=== PATIENT | male | born 1960 | race Caucasian/White ===

== ENCOUNTER → 2017-08-06 08:10 | Outpatient (CLI) | payer OTHER, SELFPAY ==
--- NOTE | 2017-08-06 08:20 | CT_ITS ---
CT abdomen pelvis wo con COMPARISON: CT scan abdomen pelvis without contrast 09/05/2014 HISTORY: Gross painless hematuria TECHNIQUE: Multiaxial scans obtained from hemidiaphragms pelvic floor and were performed without IV or oral contrast. Sagittal and coronal reformats were evaluated as well. FINDINGS: The lower lung rhoades are clear, there is a tiny calcified granuloma left posterior gutter. The liver is normal size again showing diffuse fatty infiltration with no focal lesions. Stomach spleen and pancreas appear normal. There has been a previous cholecystectomy. The adrenal glands are normal. The kidneys are normal in size and there are no calculi and is no obstructive uropathy. Small bowel appears normal. The appendix is normal in caliber and retrocecal in location. There is moderate scattered stool throughout the colon. There is minimal scattered diverticuli of the lower descending and sigmoid colon with is no evidence of diverticulitis. The urinary bladder is partially filled with urine and shows no filling defects or definite wall abnormality. The prostate is normal in size. IMPRESSION: 1. No evidence of renal or ureteral calculi and is no obstructive uropathy of either kidney. 2. Grossly normal-appearing partially filled urinary bladder with normal sized prostate 3. Minimal diverticulosis lower descending and sigmoid colon without diverticulitis 4. Stable mild diffuse fatty liver
== END ==
PROVIDERS: Family Provider Internal Medicine; PCP Internal Medicine; Visit Provider Internal Medicine
DX: R31.0 Gross hematuria (principal)
CPT/HCPCS: 74176

== ENCOUNTER → 2019-03-27 09:11 | Outpatient (CLI) | payer OTHER, SELFPAY ==
[2019-03-27 09:34] LABS: Basophils # 0.1 K/mm3 (0-0.2); Basophils % 1.1 % (0.1-2.0); Eosinophils # 0.2 K/mm3 (0.0-0.4); Eosinophils % 3.4 % (0.1-12.0); Hematocrit 30.1 % (42.0-52.0); Hemoglobin 8.3 g/dL (14.1-18.0); Lymphocytes # 1.9 K/mm3 (0.7-4.5); Lymphocytes % 33.9 % (10-50); Mean Corpuscular HGB Conc 27.4 g/dL (31.8-35.4); Mean Corpuscular Hemoglobin 18.6 pg (27.0-31.2); Mean Corpuscular Volume 67.6 fl (80-94); Mean Platelet Volume 9.2 fl (7.4-10.4); Monocytes # 0.3 K/mm3 (0.1-1.0); Monocytes % 5.7 % (1.7-9.3); Neutrophils # 3.2 K/mm3 (1.8-7.8); Neutrophils % 55.9 % (37.0-80.0); Platelet Count 302 K/mm3 (142-424); Red Blood Count 4.46 M/mm3 (4.60-6.20); Red Cell Distribution Width 15.7 % (11.5-17.5); White Blood Count 5.7 K/mm3 (4.8-10.8)
[2019-03-27 11:04] LABS: Alanine Aminotransferase 49 U/L (12-78); Albumin Level 3.8 gm/dL (3.4-5.0); Albumin/Globulin Ratio 1.1 (1.1-1.8); Alkaline Phosphatase 77 U/L (46-116); Anion Gap 15.7 mEq/L (5-15); Aspartate Amino Transferase 42 U/L (15-37); Bilirubin,Total 0.2 mg/dL (0.2-1.0); Blood Urea Nitrogen 23 mg/dL (7-18); Calcium 9.5 mg/dL (8.5-10.1); Carbon Dioxide 26 mmol/L (21.0-32.0); Chloride 104 mmol/L (98-107); Creatinine,Serum 1.39 mg/dL (0.70-1.30); Estimated Glomerular Filt Rate 52 ml/min (>60); GFR (African American) 63 ML/MIN (>60); Globulin 3.5 gm/dl (1.3-3.2); Glucose 164 mg/dL (74-106); Potassium 4.7 mmoL/L (3.5-5.1); Sodium 141 mmol/L (136-145); Thyroid Stimulating Hormone 0.98 uIU/ml (0.358-3.740); Total Protein,Serum 7.3 gm/dL (6.4-8.2)
[2019-03-28 09:30] LABS: Folate >20.0 ng/mL (>3.0); Vitamin B12 483 pg/mL (232-1245)
== END ==
PROVIDERS: Visit Provider Specialist
DX: D50.9 Iron deficiency anemia, unspecified (principal); E11.65 Type 2 diabetes mellitus with hyperglycemia; E66.9 Obesity, unspecified; R25.1 Tremor, unspecified
CPT/HCPCS: 36415; 80053; 82607; 82746; 84443; 85025

== ENCOUNTER → 2020-07-24 10:28 | Outpatient (CLI) | payer OTHER, SELFPAY ==
[2020-07-24 10:31] LABS: Adenovirus F 40/41, stool Not Detected (NotDetected); Astrovirus Not Detected (NotDetected); Campylobacter Not Detected (NotDetected); Clostridium Difficile A/B, PCR Not Detected (NotDetected); Cryptosporidium Not Detected (NotDetected); Cyclospora Cayetanesis Not Detected (NotDetected); Entamoeba histolytica Not Detected (NotDetected); Enteroaggregative E coli Not Detected (NotDetected); Enteropathogenic E coli Not Detected (NotDetected); Enterotoxigenic E coli Not Detected (NotDetected); Giardia lamblia Not Detected (NotDetected); Norovirus Not Detected (NotDetected); Plesimonas Shigalloides, PCR Not Detected (NotDetected); Rotavirus A Not Detected (NotDetected); Salmonella, PCR Not Detected (NotDetected); Sapovirus Not Detected (NotDetected); Shiga-like toxin E coli Not Detected (NotDetected); Shigella Enterovasive E coli Not Detected (NotDetected); Vibrio Cholerae Not Detected (NotDetected); Vibrio, PCR Not Detected (NotDetected); Yersinia Entercolitica, PCR Not Detected (NotDetected)
== END ==
PROVIDERS: Visit Provider Internal Medicine
DX: R19.7 Diarrhea, unspecified (principal)
CPT/HCPCS: 87507

== ENCOUNTER → 2021-07-30 12:26 | Outpatient (CLI) | payer OTHER, SELFPAY ==
[2021-07-30 15:07] LABS: Basophils # 0.1 K/mm3 (0-0.2); Basophils % 1.7 % (0.1-2.0); Eosinophils # 0.3 K/mm3 (0.0-0.4); Eosinophils % 3.7 % (0.1-12.0); Hemoglobin 15.4 g/dL (14.1-18.0); Lymphocytes % 38.1 % (10-50); Mean Corpuscular HGB Conc 32.7 g/dL (31.8-35.4); Mean Corpuscular Hemoglobin 27.2 pg (27.0-31.2); Mean Corpuscular Volume 83.1 fl (80-94); Mean Platelet Volume 9.8 fl (7.4-10.4); Monocytes # 0.4 K/mm3 (0.1-1.0); Monocytes % 5.1 % (1.7-9.3); Neutrophils # 4.1 K/mm3 (1.8-7.8); Neutrophils % 51.5 % (37.0-80.0); Platelet Count 349 K/mm3 (142-424); Red Blood Count 5.66 M/mm3 (4.60-6.20); Red Cell Distribution Width 15.2 % (11.5-17.5); White Blood Count 7.9 K/mm3 (4.8-10.8)
[2021-07-30 16:26] LABS: Direct LDL Cholesterol 91.39 mg/dL (100-129)
[2021-07-30 16:28] LABS: Triglycerides 814 mg/dl (30-150)
[2021-07-30 17:16] LABS: Chloride 100 mmol/L (98-107)
[2021-07-30 17:17] LABS: Potassium 4.5 mmoL/L (3.5-5.1); Sodium 135 mmol/L (136-145)
[2021-07-30 17:19] LABS: Alanine Aminotransferase 58 U/L (12-78); Albumin Level 4.8 g/dl (3.5-5.0); Albumin/Globulin Ratio 1.8 (1.1-1.8); Alkaline Phosphatase 100 U/L (38-126); Anion Gap 16.5 mEq/L (5-15); Aspartate Amino Transferase 53 U/L (17-59); Bilirubin,Total 0.4 mg/dl (0.2-1.3); Blood Urea Nitrogen 27 mg/dl (9-20); Carbon Dioxide 23 mmol/L (22.0-30.0); Cholesterol 270 mg/dl (140-200); Estimated Glomerular Filt Rate 62 ml/min (>60); GFR (African American) 74 ML/MIN (>60); Globulin 2.7 g/dL (1.3-3.2); Glucose 164 mg/dl (74-100); Total Protein,Serum 7.5 g/dl (6.3-8.2)
[2021-07-30 17:20] LABS: Chol/HDL Ratio 6.8 (1-3.5); HDL Cholesterol 40 mg/dl (40-60)
[2021-07-30 17:26] LABS: Hemoglobin A1C 8.4 % (4.0-6.0)
[2021-07-30 17:50] LABS: Uric Acid 5.4 mg/dl (3.5-8.5)
== END ==
PROVIDERS: Visit Provider Internal Medicine
DX: G43.909 Migraine, unspecified, not intractable, without status migrainosus (principal); J20.9 Acute bronchitis, unspecified; F51.01 Primary insomnia; J45.901 Unspecified asthma with (acute) exacerbation
CPT/HCPCS: 80053; 80061; 83036; 84550; 85025

== ENCOUNTER → 2022-02-02 16:40 | Outpatient (CLI) | payer OTHER, SELFPAY ==
[2022-02-02 18:19] LABS: Basophils # 0.1 K/mm3 (0-0.2); Basophils % 1.8 % (0.1-2.0); Eosinophils # 0.3 K/mm3 (0.0-0.4); Eosinophils % 3.1 % (0.1-12.0); Hematocrit 49.1 % (42.0-52.0); Hemoglobin 15.8 g/dL (14.1-18.0); Lymphocytes # 2.3 K/mm3 (0.7-4.5); Lymphocytes % 28.9 % (10-50); Mean Corpuscular HGB Conc 32.2 g/dL (31.8-35.4); Mean Corpuscular Hemoglobin 28.1 pg (27.0-31.2); Mean Corpuscular Volume 87.3 fl (80-94); Monocytes # 0.5 K/mm3 (0.1-1.0); Monocytes % 6.2 % (1.7-9.3); Neutrophils # 4.8 K/mm3 (1.8-7.8); Neutrophils % 59.9 % (37.0-80.0); Platelet Count 332 K/mm3 (142-424); Red Blood Count 5.63 M/mm3 (4.60-6.20); White Blood Count 7.9 K/mm3 (4.8-10.8)
[2022-02-02 18:32] LABS: Microalbumin/Creatinine Ratio 186.4
[2022-02-02 18:42] LABS: Creatinine,Urine Random 50 mg/dL (Not Estab.)
[2022-02-02 20:38] LABS: Anion Gap 19.6 mEq/L (5-15); Carbon Dioxide 24 mmol/L (22.0-30.0); Chloride 98 mmol/L (98-107); Potassium 4.6 mmoL/L (3.5-5.1); Sodium 137 mmol/L (136-145)
[2022-02-02 20:39] LABS: Alanine Aminotransferase 57 U/L (12-78); Albumin Level 4.4 g/dl (3.5-5.0); Albumin/Globulin Ratio 1.4 (1.1-1.8); Alkaline Phosphatase 128 U/L (38-126); Aspartate Amino Transferase 58 U/L (17-59); Bilirubin,Total 0.2 mg/dl (0.2-1.3); Blood Urea Nitrogen 25 mg/dl (9-20); Calcium 9.5 mg/dl (8.4-10.2); Chol/HDL Ratio 8.6 (1-3.5); Cholesterol 268 mg/dl (140-200); Estimated Glomerular Filt Rate 56 ml/min (>60); GFR (African American) 68 ML/MIN (>60); Globulin 3.1 g/dL (1.3-3.2); Glucose 167 mg/dl (74-100); HDL Cholesterol 31 mg/dl (40-60); Hemoglobin A1C 7.4 % (4.0-6.0); Total Protein,Serum 7.5 g/dl (6.3-8.2); Uric Acid 6.2 mg/dl (3.5-8.5)
[2022-02-02 20:50] LABS: Direct LDL Cholesterol 57.56 mg/dL (100-129)
[2022-02-02 20:57] LABS: Triglycerides 1392 mg/dl (30-150)
== END ==
PROVIDERS: PCP Internal Medicine; Visit Provider Internal Medicine
DX: E11.42 Type 2 diabetes mellitus with diabetic polyneuropathy (principal); I10 Essential (primary) hypertension; E78.5 Hyperlipidemia, unspecified; K76.0 Fatty (change of) liver, not elsewhere classified; M10.9 Gout, unspecified; Z79.84 Long term (current) use of oral hypoglycemic drugs
CPT/HCPCS: 36415; 80053; 80061; 82043; 82570; 83036; 84550; 85025

== ENCOUNTER 2022-02-19 08:19 | Emergency (ER) | payer OTHER, SELFPAY ==
[2022-02-19 08:33] VITALS: BP 149/99; PULSE 81; RESP 18; TEMP 36.5; O2SAT 98; BMI 35.9
--- NOTE | 2022-02-19 08:49 | EXP.UTC ---
Discharge Plan Disposition Patient Disposition: Home, Self-Care Condition: Good Prescriptions Prescriptions: New cyclobenzaprine 10 mg Tablet 10 mg PO BID PRN (Reason: Muscle Spasm) Qty: 20 0RF methylprednisolone 4 mg Tablets,Dose Pack 4 mg PO DIRECTED Qty: 21 0RF No Action amlodipine 10 mg tablet 10 mg PO ONCE lansoprazole 30 mg capsule,delayed release(DR/EC) 30 mg PO ONCE lisinopril 40 mg tablet 80 mg PO ONCE allopurinol 300 mg tablet 300 mg PO ONCE fluticasone propionate 50 mcg/actuation spray,suspension 2 spray INTRANASAL ONCE glimepiride 4 mg tablet 4 mg PO BID fenofibrate micronized 134 mg capsule 134 mg PO ONCE tamsulosin 0.4 mg capsule,extended release 24hr 0.4 mg PO ONCE albuterol sulfate [ProAir HFA] 90 mcg/actuation HFA aerosol inhaler 2 puff INHALATION Q4-6H PRN (Reason: ASTHMA) hydrochlorothiazide 25 mg tablet 25 mg PO DAILY sitagliptin 100 MG tablet 100 mg PO DAILY ertugliflozin 5 MG tablet 5 mg PO DAILY Referrals Follow up/Referrals: Ankit Jefferson MD [Primary Care Provider] - See instructions Activity Restrictions/Add. Instructions Additional Instructions/Restrictions: Go home and rest. It would be best if you rested tomorrow too. No heavy lifting. No twisting. Take the oral medications as directed. The muscle relaxer (cyclobenzaprine--Flexeril) will make you drowsy, so don't drive or operate heavy machinery after taking it. Don't start the oral steroids (medrol dose pack) until tomorrow, since you had the shots in here today. Follow up with your regular doctor. GO TO THE ER FOR ANY WORSENING SYMPTOMS OR CONCERN, ESPECIALLY BOWEL OR BLADDER ISSUES, SADDLE AREA NUMBNESS, FEVER, ETC Clinical Impressions Clinical Impression: Acute radicular low back pain Instructions Patient Instructions: DI for Low Back Pain, Cyclobenzaprine, DI for Lumbar Radiculopathy [place]charge ED [place] [facility] [place] General Stated complaint: back pain down to Lt leg Mode of Arrival: Ambulatory Limitations: No Limitations Time Seen by Provider: 02/19/22 08:49 Description of Symptoms (Recalled from Triage Doc. by RN): BACK PAIN THAT RADIATES DOWN LEFT LEG HEENT Symptoms (Recalled from RN notes): No Resp Symptoms (Recalled from RN notes): No Skin Symptoms (Recalled from RN notes): No MS Symptoms (Recalled from RN notes): Yes Functional Status (Recalled from RN notes): NA History of Present Illness Provider Complaint: He states that for the past 2 days he has had low back pain that radiates down his left leg. Bending and twisting makes it worse. He denies any recent injury or falls. Related Data Home Medications Medication Instructions Recorded Confirmed albuterol sulfate 90 mcg/actuation 2 puff inhalation Q4-6H PRN ASTHMA 08/12/17 06/07/19 aerosol inhaler (ProAir HFA) allopurinol 300 mg tablet 300 mg PO ONCE GOUT 08/12/17 06/07/19 amlodipine 10 mg tablet 10 mg PO ONCE BP 08/12/17 06/07/19 fenofibrate micronized 134 mg 134 mg PO ONCE UNKNOWN 08/12/17 06/07/19 capsule fluticasone propionate 50 2 spray intranasal ONCE ALLERGIES 08/12/17 06/07/19 mcg/actuation nasal spray,suspension glimepiride 4 mg tablet 4 mg PO BID Diabetes 08/12/17 06/07/19 lansoprazole 30 mg capsule,delayed 30 mg PO ONCE STOMACH 08/12/17 06/07/19 release lisinopril 40 mg tablet 80 mg PO ONCE BP 08/12/17 06/12/19 tamsulosin 0.4 mg capsule 0.4 mg PO ONCE PROSTATE 08/12/17 06/07/19 hydrochlorothiazide 25 mg tablet 25 mg PO DAILY BP 03/27/19 06/07/19 ertugliflozin 5 mg tablet 5 mg PO DAILY Diabetes 06/07/19 06/07/19 sitagliptin 100 mg tablet 100 mg PO DAILY Diabetes 06/07/19 06/07/19 Previous Rx's Medication Instructions Recorded cyclobenzaprine 10 mg tablet 10 mg PO BID PRN Muscle Spasm #20 02/19/22 tabs methylprednisolone 4 mg tablets in 4 mg PO DIRECTED #21 tabs 02/19/22 a dose pack Allergies
[2022-02-19 09:14] VITALS: BP 149/99; PULSE 81; RESP 18; TEMP 36.5; O2SAT 98
== END 2022-02-19 09:17 | disposition home or self-care (01) ==
PROVIDERS: Emergency Provider Nurse Practitioner Family; PCP Internal Medicine
DX: M54.16 Radiculopathy, lumbar region (principal)
CPT/HCPCS: 96372; 99212; G0463

== ENCOUNTER → 2022-05-11 12:33 | Outpatient (CLI) | payer OTHER, SELFPAY ==
--- NOTE | 2022-05-11 12:43 | MR_ITS ---
FINAL REPORT CLINICAL HISTORY: lbp worse on left side. leg leg pain, numbness, and tingling. no injury or trauma, FINDINGS: Multiplanar MR imaging of the lumbar spine was performed without contrast. On the sagittal T2-weighted images, disc degeneration is seen at multiple levels. There is mild retrolisthesis of L4 on L5. There is no evidence of fracture. The conus has an unremarkable appearance. T12-L1: There is no significant canal stenosis or neural foraminal narrowing. L1-2: An annular bulge is present. There is no significant canal stenosis or neural foraminal narrowing. L2-3: There is an annular disc bulge with facet arthropathy and vertebral osteophytes. There is a right posterior lateral disc protrusion. There is no significant canal stenosis. There is mild bilateral neural foraminal narrowing. L3-4: An annular bulge is present. There is a right posterior lateral disc protrusion. There is no significant canal stenosis. There is moderate right neural foraminal narrowing. L4-5: An annular disc bulge with facet arthropathy is present. There is a left paracentral disc protrusion with an inferior extruded disc. There is left lateral recess stenosis with left L5 nerve root compromise. There is moderate right and severe left neural foraminal narrowing. L5-S1: An annular disc bulge with facet arthropathy is present. There is a right foraminal extruded disc causing right S1 nerve root compromise. There is bilateral neural foraminal narrowing. There is mild spurring of the sacroiliac joints. IMPRESSION: Multilevel degenerative disc disease as above. Disc protrusions at L2-3, L3-4, and L4-5 with an extruded disc at L5-S1. Reviewed, Interpreted and Dictated by Bennie Vaughn III, MD Transcribed by Tere Levy Authenticated and [facility]
== END ==
PROVIDERS: PCP Internal Medicine; Visit Provider Internal Medicine
DX: M54.42 Lumbago with sciatica, left side (principal)
CPT/HCPCS: 72148; 76376

== ENCOUNTER 2022-05-14 09:00 | Outpatient (RCR) | payer OTHER, SELFPAY | END 2022-05-14 09:05 | disposition home or self-care (01) | LOC: PT 09:00 | PROVIDERS: PCP Internal Medicine; Visit Provider Internal Medicine | DX: M54.42 Lumbago with sciatica, left side (principal) | CPT/HCPCS: 97010; 97012; 97014; 97110; 97140; 97163; 97164; G0283 ==

== ENCOUNTER → 2022-06-08 12:46 | Outpatient (POV) | payer OTHER, SELFPAY ==
--- NOTE | 2022-06-08 13:00 | EXP.PAIN.OV ---
HPI Data of Consult Patient: new to practice Consult date: 06/08/22 Requesting Physician: Concha Mark APRN Primary Care Provider: Ankit Jefferson MD Consult Narrative Reason for consult: Low back pain, left leg pain History of present illness: Mr. Real is a 62 year old male who presents today as a new patient. He is a referral from Dr. Jefferson's office. Today he rates his pain a 2 out of 10. Patient states that his pain started towards the end of last year unrelated to a trauma or injury. Patient states his pain was in his low back with radiating symptoms into his left leg. Patient describes this as a aching, throbbing sensation that was worse with increased activity. Patient did have a cortisone injection from his primary care provider that did provide some improvement. Patient also states that he did start physical therapy and was only able to attend 3 visits due to the worsening pain symptoms. Patient states he did stop PT in April and then had almost 100% resolution of his pain symptoms. Patient did want to go ahead and see us in order to become an established patient in case this pain does return in the future. Patient does use gabapentin 300 mg and ibuprofen however he states he has not had to take his gabapentin for the last couple of weeks. His Zach is [id number]. Its been reviewed and appropriate. CC: Concha Mark APRN [facility] Disclaimer: The information contained in this section may have been updated after the patient was seen, as this information can be updated by other users. Medical History Diabetes GERD (gastroesophageal reflux disease) Gout Hypertension Social History (Updated 06/08/22 @ 13:06 by Macey Song RN) Smoking Status: Former smoker pack-years: 15 second hand exposure: Yes alcohol intake: never substance use type: denies use current occupational status: retired Travel in the last 8 weeks: None household members: spouse housing: house caffeine: Yes Review of Systems Review of Systems Review of systems:: pertinent systems reviewed and negative unless documented below Review of systems (narrative): Review of Systems: General: No recent weight changes, no fever, no sleep disturbances Respiratory: No cough, no shortness of air, no recurring pulmonary infections Cardiovascular/peripheral vascular: No chest pain, no palpitations, no edema, no shortness of breath Gastrointestinal: No new onset incontinence, normal bowel movements reported Genitourinary: No new onset incontinence Musculoskeletal: Low back pain, left leg pain Psychiatric: [Normal mood/affect] Neurological: [Denies weakness in extremities], [denies balance issues] Meds Home Medications and Allergies Home Medications Medication Instructions Recorded Confirmed Type albuterol sulfate 90 mcg/actuation 2 puff inhalation Q4-6H PRN ASTHMA 08/12/17 06/08/22 History aerosol inhaler (ProAir HFA) allopurinol 300 mg tablet 300 mg PO ONCE GOUT 08/12/17 06/08/22 History amlodipine 10 mg tablet 10 mg PO ONCE BP 08/12/17 06/08/22 History fenofibrate micronized 134 mg 134 mg PO ONCE UNKNOWN 08/12/17 06/08/22 History capsule fluticasone propionate 50 2 spray intranasal ONCE ALLERGIES 08/12/17 06/08/22 History mcg/actuation nasal spray,suspension glimepiride 4 mg tablet 4 mg PO BID Diabetes 08/12/17 06/08/22 History lansoprazole 30 mg capsule,delayed 30 mg PO ONCE STOMACH 08/12/17 06/08/22 History release lisinopril 40 mg tablet 80 mg PO ONCE BP 08/12/17 06/08/22 History tamsulosin 0.4 mg capsule 0.4 mg PO ONCE PROSTATE 08/12/17 06/08/22 History hydrochlorothiazide 25 mg tablet 25 mg PO DAILY BP 03/27/19 06/08/22 History ertugliflozin 5 mg tablet 5 mg PO DAILY Diabetes 06/07/19 06/08/22 History sitagliptin phosphate 100 mg tablet 100 mg PO DAILY Diabetes 06/07/19 06/08/22 History cyclobenzaprine 10 mg tablet 10 mg PO BID PRN Muscle Spasm #20 02/19/
[2022-06-08 13:02] VITALS: BP 151/94; PULSE 90; RESP 18; O2SAT 98; BMI 35.9
== END ==
PROVIDERS: PCP Internal Medicine; Visit Provider Nurse Practitioner Family
DX: M51.16 Intervertebral disc disorders with radiculopathy, lumbar region (principal); M47.26 Other spondylosis with radiculopathy, lumbar region; M79.605 Pain in left leg
CPT/HCPCS: 99202; G0463

== ENCOUNTER → 2022-08-03 14:38 | Outpatient (CLI) | payer OTHER, SELFPAY ==
[2022-08-03 17:23] LABS: Hemoglobin A1C 7.6 % (4.0-6.0)
[2022-08-03 17:36] LABS: Alanine Aminotransferase 48 U/L (12-78); Albumin Level 4.6 g/dl (3.5-5.0); Albumin/Globulin Ratio 1.6 (1.1-1.8); Alkaline Phosphatase 103 U/L (38-126); Anion Gap 13.2 mEq/L (5-15); Aspartate Amino Transferase 43 U/L (17-59); Bilirubin,Total 0.5 mg/dl (0.2-1.3); Blood Urea Nitrogen 27 mg/dl (9-20); Calcium 9.2 mg/dl (8.4-10.2); Carbon Dioxide 26 mmol/L (22.0-30.0); Chloride 100 mmol/L (98-107); Chol/HDL Ratio 8.7 (1-3.5); Cholesterol 279 mg/dl (140-200); Estimated Glomerular Filt Rate 47 ml/min (>60); GFR (African American) 57 ML/MIN (>60); Globulin 2.8 g/dL (1.3-3.2); Glucose 167 mg/dl (74-100); HDL Cholesterol 32 mg/dl (40-60); Potassium 4.2 mmoL/L (3.5-5.1); Sodium 135 mmol/L (136-145); Total Protein,Serum 7.4 g/dl (6.3-8.2); Uric Acid 5.1 mg/dl (3.5-8.5)
[2022-08-03 17:47] LABS: Direct LDL Cholesterol 63.85 mg/dL (100-129)
[2022-08-03 17:50] LABS: Triglycerides 1410 mg/dl (30-150)
[2022-08-03 18:04] LABS: Prostate Specific Ag Screen 0.8 ng/ml (0.0-4.0)
== END ==
PROVIDERS: PCP Internal Medicine; Visit Provider Internal Medicine
DX: E11.42 Type 2 diabetes mellitus with diabetic polyneuropathy (principal); I10 Essential (primary) hypertension; E78.5 Hyperlipidemia, unspecified; M10.9 Gout, unspecified; Z12.5 Encounter for screening for malignant neoplasm of prostate; Z79.84 Long term (current) use of oral hypoglycemic drugs
CPT/HCPCS: 80053; 80061; 83036; 84550; G0103

== ENCOUNTER → 2022-12-14 15:02 | Outpatient (POV) | payer OTHER, SELFPAY ==
[2022-12-14 15:07] VITALS: BP 129/87; PULSE 85; RESP 20; BMI 34.4
--- NOTE | 2022-12-14 15:12 | EXP.PAIN.SOA ---
[facility] Pain Management SOAP Note Subjective:: Patient is a pleasant 62-year-old male who presents today as a follow-up. We are currently treating the patient for degenerative disc disease of lumbar spine with lumbar radiculopathy symptoms, low back pain, left leg pain. Today he rates his pain a 5 out of 10. Patient denies any new trauma or injury. Patient denies any change to location or type of pain he experiences. Patient states he has been having worsening pain in his low back along the left side that does radiate into his left hip and left groin. He does describe it as a tingling, burning sensation that is worse with increased activity. He states he cannot tolerate prolonged sitting, standing or walking due to the pain. He frequently has to adjust his positioning while sitting due to the pain along the left side. It is interfering with his ability to perform activities of daily living such as cooking and cleaning. Patient has tried [id number] medications such as Tylenol and ibuprofen along with heat and ice and topicals with minimal relief. Patient did go to physical therapy back in April however this worsened his pain symptoms and he did have to stop going. Patient is currently managed with [place] 5 mg and gabapentin 300 mg twice a day from his primary care doctor. He denies any side effects from this medication. His Zach is [id number]. Its been reviewed and appropriate. Review of Systems: General: No recent weight changes, no fever, no sleep disturbances Respiratory: No cough, no shortness of air, no recurring pulmonary infections Cardiovascular/peripheral vascular: No chest pain, no palpitations, no edema, no shortness of breath Gastrointestinal: No new onset incontinence, normal bowel movements reported Genitourinary: No new onset incontinence Musculoskeletal: Low back pain left-sided, left hip, left groin pain Psychiatric: [Normal mood/affect] Neurological: [Denies weakness in extremities], [denies balance issues] Objective:: Physical Exam: General: Alert and oriented x3, no acute distress, pleasant and cooperative Lungs: Respirations even and unlabored, symmetrical chest expansion Eyes: PERRL Musculoskeletal: Flexion and extension of lumbar [spine] somewhat guarded secondary to pain, [antalgic gait noted] point tenderness noted along left SI with positive left Kameron's, Justa's, Gaenslen's, compression and distraction exam Neurological: Speech clear, no gross sensory deficit Assessment:: Degenerative disc disease of lumbar spine with lumbar radiculopathy symptoms, low back pain, left leg pain, left sacroiliitis Plan:: Patient is experiencing worsening pain in his low back along the left side with limited range of motion and radiating symptoms into his left hip and left groin. Patient has tried and failed conservative therapy such as oral medications, heat and ice, topicals, physical therapy, at home stretching and exercise for longer than 6 weeks. I have discussed with the patient that he may benefit from a left SI injection related to his point tenderness noted along his left SI with a positive left Kameron's, Justa's, Gaenslen's, compression and distraction exam. Risk and benefits of this injection were explained to the patient and he would like to proceed forward with this plan of care. Patient will be scheduled for a left SI injection. Patient has been instructed to contact the clinic with any concerns before the next appointment. Dr. Meyers has reviewed this note and agrees with this plan of care. This note was dictated using voice recognition software and make contain errors or omissions. [facility] Disclaimer: The information contained in this section may have been updated after the patient was seen, as this information can be updated by other users. Medical History Diabetes GERD (gastroesophageal reflux disease) Gout Hypertension Social History (Updated 06/08/22 @ 13:06
== END ==
LOC: SC.PAIN 15:02
PROVIDERS: PCP Internal Medicine; Visit Provider Nurse Practitioner Family
DX: M51.16 Intervertebral disc disorders with radiculopathy, lumbar region (principal); M54.50 Low back pain, unspecified; M79.605 Pain in left leg; M46.1 Sacroiliitis, not elsewhere classified
CPT/HCPCS: 99212; G0463

== ENCOUNTER 2022-12-22 13:26 | Day surgery (SDC) | payer OTHER, SELFPAY ==
[2022-12-22 13:41] VITALS: BP 131/82; PULSE 82; RESP 18; O2SAT 98; BMI 35.9
[2022-12-22 14:13] LABS: POC Glucose,Bedside 196 (70-110)
[2022-12-22 14:16] VITALS: BP 136/83; PULSE 76; RESP 18; O2SAT 98
[2022-12-22 14:28] VITALS: PULSE 77; RESP 18; O2SAT 95
--- NOTE | 2022-12-22 14:29 | EXP.PAIN.PRO ---
Procedure Date: 12/22/22 Time: 14:20 Anesthesiologist:: Kevin Brown CRNA Complications:: None Pre-procedure Diagnosis:: Left sacroiliitis. Post-procedure Diagnosis:: Same. Indications for Procedure:: Very pleasant 62-year-old male who comes our clinic today for left sacroiliac joint injection. Patient has extreme point tenderness over the left sacroiliac joint. He complains of left posterior hip pain with ambulation, sitting. Rates his pain 8/10. Patient has difficulty transitioning from sitting to standing. Procedure Details:: Procedure: Left sacroiliac injection under fluoroscopy Informed consent was obtained and the risk and benefits of the procedure were explained to the patient.~ The patient was taken to the procedure room and noninvasive monitors were placed including noninvasive blood pressure cuff and pulse oximeter.~ The patient was placed prone on the procedure table.~ The~ left hip was cleansed using Betadine as a cleansing solution.~ C-arm fluorosocpy was used to view the left SI joint.~ The skin and subcutaneous tissues were anesthetized using Lidocaine 1.5% and a 25-gauge needle.~ After this, a 22-gauge spinal needle was inserted under fluoroscopic guidance into the inferior aspect of the left SI joint.~ Omnipaque dye was injected and a good spread was seen throughout the joint.~ After this, approximately 5 mL of bupivacaine 0.25% and Depo-Medrol 40 mg was incrementally injected into the sacroiliac joint.~ The patient tolerated the procedure well with no complications.~ The patient was observed in the Pain Clinic for a period of 30-45 minutes, then discharged home neurologically intact.~ Plan and Disposition:: Patient was discharged without incident.
== END 2022-12-22 14:16 | disposition home or self-care (01) ==
LOC: SC.PAINP 13:27
PROVIDERS: PCP Internal Medicine; Visit Provider Nurse Anesthetist, Certified Registered
DX: M46.1 Sacroiliitis, not elsewhere classified (principal); E11.9 Type 2 diabetes mellitus without complications
CPT/HCPCS: 27096; 82962; G0260; J1040

== ENCOUNTER → 2023-01-06 13:48 | Outpatient (POV) | payer OTHER, SELFPAY ==
[2023-01-06 15:49] VITALS: BP 147/96; PULSE 81; RESP 20; O2SAT 97; BMI 35.9
--- NOTE | 2023-01-06 16:27 | EXP.PAIN.SOA ---
[facility] Pain Management SOAP Note Subjective:: Patient presents today for follow-up of left SI injection on 12/22/2022. We are currently treating the patient for degenerative disc disease of lumbar spine with lumbar radiculopathy symptoms, low back pain, left leg pain, sacroiliitis. Today he rates his pain a 5 out of 10. Patient denies any new trauma or injury. He does state that he did not necessarily notice significant improvement with this injection however he has noticed that he is able to sit for longer periods of time with decreased pain symptoms. Patient states that he continues to have pain into his low back along the left side and down his left leg. He does describe this as an aching, throbbing sensation that is worse with increased activity. It does interfere with his ability perform activities of daily living such as cooking or cleaning. Patient has tried [id number]-[id number] medications along with heat and ice and topicals with no additional improvement. This has been going on since before April. Patient has also tried [place] 5 mg and gabapentin 300 mg 3 times a day from his primary care doctor with minimal improvement. His Zach is [id number]. Its been reviewed and appropriate. Review of Systems: General: No recent weight changes, no fever, no sleep disturbances Respiratory: No cough, no shortness of air, no recurring pulmonary infections Cardiovascular/peripheral vascular: No chest pain, no palpitations, no edema, no shortness of breath Gastrointestinal: No new onset incontinence, normal bowel movements reported Genitourinary: No new onset incontinence Musculoskeletal: Low back pain, left leg pain Psychiatric: [Normal mood/affect] Neurological: [Denies weakness in extremities], [denies balance issues] Objective:: Physical Exam: General: Alert and oriented x3, no acute distress, pleasant and cooperative Lungs: Respirations even and unlabored, symmetrical chest expansion Eyes: PERRL Musculoskeletal: Flexion and extension of lumbar [spine] somewhat guarded secondary to pain, [antalgic gait noted] positive left leg raise with decreased Achilles reflex and decreased sensation to light touch Neurological: Speech clear, no gross sensory deficit Assessment:: Degenerative disc disease of lumbar spine with lumbar radiculopathy symptoms, low back pain, left leg pain, sacroiliitis Plan:: Patient is experiencing significant pain in his low back with radiating symptoms into his left lower extremity. Patient did have a positive left leg raise with decreased reflexes and decreased sensation to light touch during today's exam. Patient does have significant findings consistent with possible nerve impingement. I have discussed with the patient that he may benefit from a left transforaminal epidural steroid injection. Risk and benefits were explained to the patient and he would like to proceed forward with this plan of care. Patient is not on any blood thinners. We will schedule him for a left transforaminal epidural steroid injection L4-L5 and L5-S1. Patient has been instructed to contact the clinic with any concerns before the next appointment. Dr. Meyers has reviewed this note and agrees with this plan of care. This note was dictated using voice recognition software and make contain errors or omissions. [facility] Disclaimer: The information contained in this section may have been updated after the patient was seen, as this information can be updated by other users. Medical History Diabetes GERD (gastroesophageal reflux disease) Gout Hypertension Family History (Updated 12/22/22 @ 13:42 by Destinee Madsen RN) Other No significant family history Social History Smoking Status: Former smoker pack-years: 15 second hand exposure: Yes alcohol intake: never substance use type: denies use current occupational status: other [employer]
== END ==
PROVIDERS: PCP Internal Medicine; Visit Provider Nurse Practitioner Family
DX: M51.16 Intervertebral disc disorders with radiculopathy, lumbar region (principal); M79.605 Pain in left leg; M46.1 Sacroiliitis, not elsewhere classified
CPT/HCPCS: 99212; G0463

== ENCOUNTER 2023-01-19 13:00 | Day surgery (SDC) | payer OTHER, SELFPAY ==
[2023-01-19 13:00] VITALS: BP 152/97; PULSE 67; RESP 20; TEMP 36.4; O2SAT 97; BMI 40.1
[2023-01-19 13:13] VITALS: BP 142/87; PULSE 66; RESP 18; O2SAT 97
[2023-01-19 13:25] VITALS: BP 145/79; PULSE 68; RESP 20
--- NOTE | 2023-01-26 13:46 | EXP.PAIN.PRO ---
Procedure Date: 01/19/23 Time: 14:30 Anesthesiologist:: Kevin Brown CRNA Complications:: None Pre-procedure Diagnosis:: Degenerative disc lumbar spine multilevels. Lumbar radiculopathy. Multilevel lumbar disc bulge Post-procedure Diagnosis:: Same. Indications for Procedure:: Patient is a very pleasant 60-year-old male that comes our clinic today for a left L4-5, L5-S1 transforaminal epidural steroid injection. Patient has left low lumbar pain he describes as constant, dull, aching. Patient also complains of left leg radicular symptoms to the foot. He rates his pain 7/10. Procedure Details:: Details of the procedure were explained to the patient. The patient was taken the procedure room placed in the prone position. The area of the lumbar spine was cleansed using chlorhexidine as a cleansing solution. At this time using fluoroscopy guidance markers were placed on the left lateral border of the L4 and L5 vertebral body. The skin and subcutaneous tissue was anesthetized using 1% lidocaine and 25-gauge needle. At this time using a 22-gauge 3-1/2 inch spinal needle the left upper one third of the L4-5 foramen was accessed. The same was done at the left L5-S1 foramen. Needle positions were confirmed and a lateral view using fluoroscopy and contrast dye. At this time 1 cc of 1% lidocaine +20 mg of Depo-Medrol was injected at each level after negative aspiration. [place] were removed. Band-Aid applied. Patient tolerated the procedure without difficulty. There are no complications. Plan and Disposition:: Patient was discharged without incident.
== END 2023-01-19 13:25 | disposition home or self-care (01) ==
LOC: SC.PAINP 01-20 07:10
PROVIDERS: PCP Internal Medicine; Visit Provider Nurse Anesthetist, Certified Registered
DX: M51.16 Intervertebral disc disorders with radiculopathy, lumbar region (principal)
CPT/HCPCS: 64483; 64484; J1030

== ENCOUNTER → 2023-02-02 12:05 | Outpatient (CLI) | payer OTHER, SELFPAY ==
[2023-02-02 13:21] LABS: Basophils # 0.1 K/mm3 (0-0.2); Basophils % 0.6 % (0.1-2.0); Eosinophils # 0.4 K/mm3 (0.0-0.4); Hematocrit 46.2 % (42.0-52.0); Hemoglobin 14.8 g/dL (14.1-18.0); Lymphocytes # 2.7 K/mm3 (0.7-4.5); Mean Corpuscular HGB Conc 31.9 g/dL (31.8-35.4); Mean Corpuscular Hemoglobin 27.4 pg (27.0-31.2); Mean Corpuscular Volume 85.6 fl (80-94); Mean Platelet Volume 8.3 fl (7.4-10.4); Monocytes # 0.5 K/mm3 (0.1-1.0); Monocytes % 5.8 % (1.7-9.3); Neutrophils # 5.4 K/mm3 (1.8-7.8); Neutrophils % 59.5 % (37.0-80.0); Platelet Count 318 K/mm3 (142-424); Red Blood Count 5.39 M/mm3 (4.60-6.20); Red Cell Distribution Width 15.4 % (11.5-17.5)
[2023-02-02 13:39] LABS: Hemoglobin A1C 7.1 % (4.0-6.0)
[2023-02-02 14:16] LABS: Alanine Aminotransferase 58 U/L (12-78); Albumin Level 4.6 g/dl (3.5-5.0); Albumin/Globulin Ratio 1.6 (1.1-1.8); Alkaline Phosphatase 97 U/L (38-126); Anion Gap 18.3 mEq/L (5-15); Aspartate Amino Transferase 53 U/L (17-59); Bilirubin,Total 0.2 mg/dl (0.2-1.3); Blood Urea Nitrogen 25 mg/dl (9-20); Calcium 9.5 mg/dl (8.4-10.2); Carbon Dioxide 22 mmol/L (22.0-30.0); Chloride 105 mmol/L (98-107); Chol/HDL Ratio 7.7 (1-3.5); Cholesterol 276 mg/dl (140-200); Estimated Glomerular Filt Rate 51 ml/min (>60); GFR (African American) 62 ML/MIN (>60); Globulin 2.9 g/dL (1.3-3.2); Glucose 144 mg/dl (74-100); HDL Cholesterol 36 mg/dl (40-60); Potassium 4.3 mmoL/L (3.5-5.1); Sodium 141 mmol/L (136-145); Total Protein,Serum 7.5 g/dl (6.3-8.2); Uric Acid 5.4 mg/dl (3.5-8.5)
[2023-02-02 14:20] LABS: Triglycerides 512 mg/dl (30-150)
[2023-02-02 14:27] LABS: Direct LDL Cholesterol 123.56 mg/dL (100-129)
== END ==
PROVIDERS: PCP Internal Medicine; Visit Provider Internal Medicine
DX: E11.42 Type 2 diabetes mellitus with diabetic polyneuropathy (principal); I10 Essential (primary) hypertension; E78.5 Hyperlipidemia, unspecified; K76.0 Fatty (change of) liver, not elsewhere classified; K21.9 Gastro-esophageal reflux disease without esophagitis; M10.9 Gout, unspecified; M54.42 Lumbago with sciatica, left side; Z79.4 Long term (current) use of insulin
CPT/HCPCS: 80053; 80061; 83036; 84550; 85025

== ENCOUNTER → 2023-02-08 14:15 | Outpatient (POV) | payer OTHER, SELFPAY ==
[2023-02-08 14:24] VITALS: BP 154/86; PULSE 78; RESP 18; O2SAT 94; BMI 35.9
--- NOTE | 2023-02-08 14:29 | EXP.PAIN.SOA ---
[facility] Pain Management SOAP Note Subjective:: Patient is a pleasant 63-year-old male who presents today for follow-up of left transforaminal epidural steroid injection L4-L5 and L5-S1 on 01/19/2023. We are currently treating the patient for degenerative disc disease of the lumbar spine with lumbar radiculopathy symptoms, low back pain, left leg pain, sacroiliitis. Today he rates his pain a 0 out of 10. Patient denies any new trauma or injury. He states he had 100% improvement and is still feeling additional relief. Patient states he has been able to increase his activity with decreased pain symptoms. Overall he states he feels much more functional and able to do activities of daily living. Patient is currently managed with gabapentin 300 mg 3 times a day from his primary care provider. His Zach is [id number]. Its been reviewed and appropriate. Review of Systems: General: No recent weight changes, no fever, no sleep disturbances Respiratory: No cough, no shortness of air, no recurring pulmonary infections Cardiovascular/peripheral vascular: No chest pain, no palpitations, no edema, no shortness of breath Gastrointestinal: No new onset incontinence, normal bowel movements reported Genitourinary: No new onset incontinence Musculoskeletal: Low back pain, left leg pain Psychiatric: [Normal mood/affect] Neurological: [Denies weakness in extremities], [denies balance issues] Objective:: Physical Exam: General: Alert and oriented x3, no acute distress, pleasant and cooperative Lungs: Respirations even and unlabored, symmetrical chest expansion Eyes: PERRL Musculoskeletal: Flexion and extension of lumbar [spine] somewhat guarded secondary to pain, [antalgic gait noted] Neurological: Speech clear, no gross sensory deficit Assessment:: Degenerative disc disease of lumbar spine with lumbar radiculopathy symptoms, low back pain, left leg pain, sacroiliitis Plan:: Patient has had 100% improvement following his left transforaminal epidural and does not require any additional injective therapy at this time. Patient will return to clinic in 1 month for reevaluation of symptoms and plan of care. Patient has been instructed to contact the clinic with any concerns before the next appointment. Dr. Meyers has reviewed this note and agrees with this plan of care. This note was dictated using voice recognition software and make contain errors or omissions. [facility] Disclaimer: The information contained in this section may have been updated after the patient was seen, as this information can be updated by other users. Medical History Diabetes GERD (gastroesophageal reflux disease) Gout Hypertension Family History Other No significant family history Social History (Updated 01/20/23 @ 10:37 by Analia Yu RN) Smoking Status: Former smoker pack-years: 15 second hand exposure: Yes alcohol intake: never substance use type: denies use current occupational status: other Travel in the last 8 weeks: None household members: spouse housing: house caffeine: Yes
== END ==
PROVIDERS: PCP Internal Medicine; Visit Provider Nurse Practitioner Family
DX: M51.16 Intervertebral disc disorders with radiculopathy, lumbar region (principal); M79.605 Pain in left leg; M46.1 Sacroiliitis, not elsewhere classified
CPT/HCPCS: 99212; G0463

== ENCOUNTER → 2023-03-10 08:50 | Outpatient (POV) | payer OTHER, SELFPAY ==
--- NOTE | 2023-03-10 09:04 | A.OFFVIS_ITS ---
[facility] Pain Management SOAP Note Subjective:: Patient is a pleasant 63-year-old male who presents today for 1 month follow-up. We are currently treating the patient for degenerative disc disease of lumbar spine with lumbar radiculopathy symptoms, low back pain, left leg pain, sacroiliitis. Today he rates his pain a 0 out of 10. Patient previously had a left transforaminal epidural steroid injection L4-L5 and L5-S1 at the end of December that did provide 100% improvement and has continued to provide additional relief. He states that he is continue to do more activities around the home as well as work with decreased pain and feels overall much more functional. Patient is prescribed gabapentin 300 mg 3 times a day from his primary care provider. His Zach is [id number]. Has been reviewed and appropriate. Review of Systems: General: No recent weight changes, no fever, no sleep disturbances Respiratory: No cough, no shortness of air, no recurring pulmonary infections Cardiovascular/peripheral vascular: No chest pain, no palpitations, no edema, no shortness of breath Gastrointestinal: No new onset incontinence, normal bowel movements reported Genitourinary: No new onset incontinence Musculoskeletal: Low back pain Psychiatric: [Normal mood/affect] Neurological: [Denies weakness in extremities], [denies balance issues] Objective:: Physical Exam: General: Alert and oriented x3, no acute distress, pleasant and cooperative Lungs: Respirations even and unlabored, symmetrical chest expansion Eyes: PERRL Musculoskeletal: Flexion and extension of lumbar [spine] somewhat guarded secondary to pain, [antalgic gait noted] Neurological: Speech clear, no gross sensory deficit Assessment:: Degenerative disc disease of lumbar spine with lumbar radiculopathy symptoms, low back pain, left leg pain, sacroiliitis Plan:: Patient continues to have significant relief following his transforaminal epidural injection and does not require any additional injective therapy. Patient will return to clinic in 3 months for reevaluation of symptoms and plan of care. Patient has been instructed to contact the clinic with any concerns before the next appointment. Dr. Meyers has reviewed this note and agrees with this plan of care. This note was dictated using voice recognition software and make contain errors or omissions. [facility] Disclaimer: The information contained in this section may have been updated after the patient was seen, as this information can be updated by other users. Medical History Diabetes GERD (gastroesophageal reflux disease) Gout Hypertension Family History Other No significant family history Social History (Updated 01/20/23 @ 10:37 by Analia Yu RN) Smoking Status: Former smoker second hand exposure: Yes alcohol intake: never substance use type: denies use current occupational status: other Travel in the last 8 weeks: None household members: spouse housing: house caffeine: Yes
[2023-03-10 12:29] VITALS: BP 188/100; PULSE 79; RESP 19; O2SAT 96; BMI 35.9
== END ==
PROVIDERS: PCP Internal Medicine; Visit Provider Nurse Practitioner Family
DX: M51.16 Intervertebral disc disorders with radiculopathy, lumbar region (principal); M79.605 Pain in left leg; M46.1 Sacroiliitis, not elsewhere classified
CPT/HCPCS: 99212; G0463

== ENCOUNTER → 2023-06-10 08:42 | Outpatient (POV) | payer OTHER, SELFPAY ==
--- NOTE | 2023-06-10 08:54 | EXP.PAIN.SOA ---
[facility] Pain Management SOAP Note Subjective:: Patient is a pleasant 63-year-old male who presents today for 3 month follow-up. We are currently treating the patient for degenerative disc disease of lumbar spine with lumbar radiculopathy symptoms, low back pain, left leg pain, sacroiliitis. Today he rates his pain a 0 out of 10. Patient denies any new trauma or injury. Patient continues to state he has less pain since his last injection. He states he has been able to continue to do activities and things around the house and work with decreased pain and continues to be more functional. He had a left transforaminal epidural steroid injection L4-L5 and L5-S1 at the end of December that did provide 100% improvement. Patient is prescribed gabapentin 300 mg 3 times a day from his primary care provider. His Zach has been reviewed and appropriate. Review of Systems: General: No recent weight changes, no fever, no sleep disturbances Respiratory: No cough, no shortness of air, no recurring pulmonary infections Cardiovascular/peripheral vascular: No chest pain, no palpitations, no edema, no shortness of breath Gastrointestinal: No new onset incontinence, normal bowel movements reported Genitourinary: No new onset incontinence Musculoskeletal: Low back pain Psychiatric: [Normal mood/affect] Neurological: [Denies weakness in extremities], [denies balance issues] Objective:: Physical Exam: General: Alert and oriented x3, no acute distress, pleasant and cooperative Lungs: Respirations even and unlabored, symmetrical chest expansion Eyes: PERRL Musculoskeletal: Flexion and extension of lumbar [spine] somewhat guarded secondary to pain, [antalgic gait noted] Neurological: Speech clear, no gross sensory deficit Assessment:: degenerative disc disease of lumbar spine with lumbar radiculopathy symptoms, low back pain, left leg pain, sacroiliitis Plan:: Patient has continued to have significant improvement following his left transforaminal injection done in December 2022 and does not require any additional injection therapy at this time. I have counseled the patient that we will see him back in 6 months for reevaluation of symptoms and plan of care. Patient has been instructed to contact the clinic with any concerns before the next appointment. Dr. Meyers has reviewed this note and agrees with this plan of care. This note was dictated using voice recognition software and make contain errors or omissions. [facility] Disclaimer: The information contained in this section may have been updated after the patient was seen, as this information can be updated by other users. Medical History Diabetes GERD (gastroesophageal reflux disease) Gout Hypertension Family History Other No significant family history Social History (Updated 01/20/23 @ 10:37 by Analia Yu RN) Smoking Status: Former smoker second hand exposure: Yes alcohol intake: never substance use type: denies use current occupational status: other Travel in the last 8 weeks: None household members: spouse housing: house caffeine: Yes
[2023-06-10 12:19] VITALS: BP 184/94; PULSE 84; RESP 18; O2SAT 94; BMI 35.9
== END ==
LOC: SC.PAIN 08:42
PROVIDERS: PCP Internal Medicine; Visit Provider Nurse Practitioner Family
DX: M51.16 Intervertebral disc disorders with radiculopathy, lumbar region (principal); M79.605 Pain in left leg; M46.1 Sacroiliitis, not elsewhere classified
CPT/HCPCS: 99212; G0463

== ENCOUNTER 2023-08-09 12:29 | Outpatient (CLI) | payer OTHER, SELFPAY ==
[2023-08-09 14:41] LABS: Creatinine,Urine Random 47 mg/dL (Not Estab.); Microalbumin/Creatinine Ratio 263.8
[2023-08-09 15:13] LABS: Alanine Aminotransferase 43 U/L (12-78); Albumin Level 4.6 g/dl (3.5-5.0); Albumin/Globulin Ratio 1.6 (1.1-1.8); Alkaline Phosphatase 102 U/L (38-126); Anion Gap 16.1 mEq/L (5-15); Aspartate Amino Transferase 46 U/L (17-59); Bilirubin,Total 0.4 mg/dl (0.2-1.3); Calcium 9.8 mg/dl (8.4-10.2); Carbon Dioxide 23 mmol/L (22.0-30.0); Chloride 104 mmol/L (98-107); Chol/HDL Ratio 9.1 (1-3.5); Cholesterol 273 mg/dl (140-200); Globulin 2.8 g/dL (1.3-3.2); Glucose 158 mg/dl (74-100); HDL Cholesterol 30 mg/dl (40-60); Potassium 4.1 mmoL/L (3.5-5.1); Sodium 139 mmol/L (136-145); Total Protein,Serum 7.4 g/dl (6.3-8.2); Uric Acid 4.9 mg/dl (3.5-8.5)
[2023-08-09 15:17] LABS: Blood Urea Nitrogen 22 mg/dl (9-20); Estimated Glomerular Filt Rate 61 ml/min (>60); GFR (African American) 74 ML/MIN (>60)
[2023-08-09 15:22] LABS: Triglycerides 1030 mg/dl (30-150)
[2023-08-09 15:24] LABS: Direct LDL Cholesterol 84.19 mg/dL (100-129)
[2023-08-09 21:42] LABS: Hemoglobin A1C 8.4 % (4.0-6.0)
== END 2023-08-09 23:59 ==
LOC: LAB.DROPOF 12:29
PROVIDERS: PCP Internal Medicine; Visit Provider Internal Medicine
DX: E11.42 Type 2 diabetes mellitus with diabetic polyneuropathy (principal); E78.5 Hyperlipidemia, unspecified; I10 Essential (primary) hypertension; J45.998 Other asthma; K21.9 Gastro-esophageal reflux disease without esophagitis; K76.0 Fatty (change of) liver, not elsewhere classified; M10.9 Gout, unspecified; Z68.34 Body mass index [BMI] 34.0-34.9, adult
CPT/HCPCS: 80053; 80061; 82043; 82570; 83036; 84550; G0103

== ENCOUNTER 2023-11-08 15:03 | Outpatient (CLI) | payer OTHER, SELFPAY ==
[2023-11-08 15:09] LABS: Chol/HDL Ratio 6.3 (1-3.5); Cholesterol 260 mg/dl (140-200); HDL Cholesterol 41 mg/dl (40-60); Triglycerides 506 mg/dl (30-150)
[2023-11-08 15:21] LABS: Direct LDL Cholesterol 106.19 mg/dL (100-129)
[2023-11-08 16:12] LABS: Hemoglobin A1C 7.3 % (4.0-6.0)
== END 2023-11-08 23:59 | disposition home or self-care (01) ==
LOC: LAB.DROPOF 15:04
PROVIDERS: PCP Internal Medicine; Visit Provider Internal Medicine
DX: E78.5 Hyperlipidemia, unspecified (principal); E11.49 Type 2 diabetes mellitus with other diabetic neurological complication; Z79.84 Long term (current) use of oral hypoglycemic drugs; Z79.4 Long term (current) use of insulin
CPT/HCPCS: 80061; 83036

== ENCOUNTER 2023-12-09 08:17 | Outpatient (POV) | payer OTHER, SELFPAY ==
--- NOTE | 2023-12-09 08:33 | EXP.PAIN.SOA ---
[facility] Disclaimer: The information contained in this section may have been updated after the patient was seen, as this information can be updated by other users. Medical History GERD (gastroesophageal reflux disease) Gout Diabetes Hypertension Family History Other No significant family history Social History Smoking Status: Former smoker second hand exposure: Yes alcohol intake: never substance use type: denies use current occupational status: other Travel in the last 8 weeks: None household members: spouse housing: house caffeine: Yes PM Subjective & Objective Subjective Subjective:: Patient is a pleasant 63-year-old male who presents today for 6-month follow-up. Today he rates his pain a 0 out of 10. Patient does state that he still feels like overall he is doing extremely well from his left transforaminal epidural that was done in December 2022. He does state occasionally he will get up and do things and has a little pain but as long as he stops and rest it improves and he does not need anything else. Patient is prescribed gabapentin from his primary care. His Zach has been reviewed and is appropriate. Review of Systems: General: No recent weight changes, no fever, no sleep disturbances Respiratory: No cough, no shortness of air, no recurring pulmonary infections Cardiovascular/peripheral vascular: No chest pain, no palpitations, no edema, no shortness of breath Gastrointestinal: No new onset incontinence, normal bowel movements reported Genitourinary: No new onset incontinence Musculoskeletal: Low back pain Psychiatric: [Normal mood/affect] Neurological: [Denies weakness in extremities], [denies balance issues] Pain at rest (0-10 scale): 0 Objective Objective:: Physical Exam: General: Alert and oriented x3, no acute distress, pleasant and cooperative Lungs: Respirations even and unlabored, symmetrical chest expansion Eyes: PERRL Musculoskeletal: Flexion and extension of lumbar [spine] somewhat guarded secondary to pain, [antalgic gait noted] Neurological: Speech clear, no gross sensory deficit Has patient had previous pain injection?: No Conservative treatment options previously tried: Home exercise plan Length of treatment: Longer than 6 weeks Meds Home Medications and Allergies Home Medications Medication Instructions Recorded Confirmed Type albuterol sulfate 90 mcg/actuation 2 puff inhalation Q4-6H PRN ASTHMA 08/12/17 11/08/23 History aerosol inhaler (ProAir HFA) allopurinol 300 mg tablet 300 mg PO ONCE GOUT 08/12/17 11/08/23 History amlodipine 10 mg tablet 10 mg PO ONCE BP 08/12/17 11/08/23 History fenofibrate micronized 134 mg 134 mg PO ONCE UNKNOWN 08/12/17 11/08/23 History capsule glimepiride 4 mg tablet 4 mg PO BID Diabetes 08/12/17 11/08/23 History tamsulosin 0.4 mg capsule 0.4 mg PO ONCE PROSTATE 08/12/17 11/08/23 History hydrochlorothiazide 25 mg tablet 25 mg PO DAILY BP 03/27/19 11/08/23 History ferrous sulfate 325 mg (65 mg 325 mg PO DAILY anemia 12/22/22 11/08/23 History iron) tablet gabapentin 300 mg capsule 300 mg PO TID Pain 12/22/22 11/08/23 History ibuprofen 800 mg tablet 800 mg PO TID Pain 12/22/22 11/08/23 History insulin glargine 100 unit/mL (3 35 unit SQ DAILY Diabetes 12/22/22 11/08/23 History mL) subcutaneous pen (Shiela Broussard U-100 Insulin) diclofenac sodium 1 % topical gel 2 g topical QID PRN pain #100 grams 11/08/23 11/08/23 Rx fluticasone fur. 100 mcg-umeclid 1 inh .Route DAILY . #60 ea 11/08/23 11/08/23 Rx 62.5 mcg-vilant 25 mcg inhalat.powder (Trelegy Ellipta) lisinopril 40 mg tablet 80 mg (2 x 40 mg) PO DAILY BP #180 11/15/23 Rx tabs omeprazole 40 mg capsule,delayed See Rx Instructions .Route 12/06/23 Rx release .COMPLEX #90 caps New Prescriptions to Start Prescriptions: Allergies Allergy/AdvReac Type Severity Reaction Status Date / Time No Known Allergies Allergy Verified 11/08/23 11:12 Assessment and Plan *Assessment and plan (1) Lumbar radiculopathy: Status: Acute Category: Medical Code(s): M54.16 - Radiculopathy, lumbar region (2) Degenerative joint disease (DJD) of lumbar spine: Status: Acute Qualifiers: Spinal osteoarthritis complication: with radiculopathy Qualified Code(s): M47.26 - Other spondylosis with radiculopathy, lumbar region Category: Medical Code(s): M47.816 - Spondylosis without myelopathy or radiculopathy, lumbar region Plan Patient has continued to get significant relief and does not require any additional injection therapy at this time. Patient will return to clinic in 6 months for reevaluation of symptoms and plan of care. Patient has been instructed to contact the clinic with any concerns before the next appointment. Dr. Meyers has reviewed this note and agrees with this plan of care. This note was dictated using voice recognition software and make contain errors or omissions.
[2023-12-09 08:38] VITALS: BP 157/94; BP 164/103; PULSE 66; RESP 16; O2SAT 97; BMI 35.9
== END 2023-12-09 23:59 | disposition home or self-care (01) ==
LOC: SC.PAIN 08:17
PROVIDERS: PCP Internal Medicine; Visit Provider Nurse Practitioner Family
DX: M47.26 Other spondylosis with radiculopathy, lumbar region (principal)
CPT/HCPCS: 99212; G0463

== ENCOUNTER 2024-02-08 08:45 | Outpatient (CLI) | payer OTHER, SELFPAY ==
[2024-02-08 13:37] LABS: Basophils # 0.1 K/mm3 (0-0.2); Eosinophils # 0.2 K/mm3 (0.0-0.4); Eosinophils % 2.8 % (0.1-12.0); Hematocrit 45.1 % (42.0-52.0); Hemoglobin 14.2 g/dL (14.1-18.0); Lymphocytes # 2.3 K/mm3 (0.7-4.5); Lymphocytes % 27.4 % (10-50); Mean Corpuscular HGB Conc 31.4 g/dL (31.8-35.4); Mean Corpuscular Hemoglobin 27.2 pg (27.0-31.2); Mean Corpuscular Volume 86.6 fl (80-94); Mean Platelet Volume 8.3 fl (7.4-10.4); Monocytes # 0.4 K/mm3 (0.1-1.0); Neutrophils # 5.4 K/mm3 (1.8-7.8); Neutrophils % 63.7 % (37.0-80.0); Platelet Count 315 K/mm3 (142-424); Red Blood Count 5.21 M/mm3 (4.60-6.20); Red Cell Distribution Width 15.5 % (11.5-17.5); White Blood Count 8.5 K/mm3 (4.8-10.8)
[2024-02-08 14:30] LABS: Alanine Aminotransferase 47 U/L (12-78); Albumin Level 4.6 g/dl (3.5-5.0); Albumin/Globulin Ratio 1.8 (1.1-1.8); Alkaline Phosphatase 79 U/L (38-126); Anion Gap 14.2 mEq/L (5-15); Aspartate Amino Transferase 48 U/L (17-59); Bilirubin,Total 0.5 mg/dl (0.2-1.3); Blood Urea Nitrogen 29 mg/dl (9-20); Calcium 9.8 mg/dl (8.4-10.2); Carbon Dioxide 22 mmol/L (22.0-30.0); Chloride 107 mmol/L (98-107); Chol/HDL Ratio 5.6 (1-3.5); Cholesterol 211 mg/dl (140-200); Estimated Glomerular Filt Rate 56 ml/min (>60); GFR (African American) 67 ML/MIN (>60); Globulin 2.6 g/dL (1.3-3.2); Glucose 148 mg/dl (74-100); HDL Cholesterol 38 mg/dl (40-60); Potassium 4.2 mmoL/L (3.5-5.1); Sodium 139 mmol/L (136-145); Total Protein,Serum 7.2 g/dl (6.3-8.2); Triglycerides 443 mg/dl (30-150); Uric Acid 5.2 mg/dl (3.5-8.5)
[2024-02-08 14:40] LABS: Direct LDL Cholesterol 100.56 mg/dL (100-129)
[2024-02-08 14:57] LABS: Hemoglobin A1C 7.6 % (4.0-6.0)
== END 2024-02-08 23:59 | disposition home or self-care (01) ==
LOC: LAB.DROPOF 02-09 09:24
PROVIDERS: PCP Internal Medicine; Visit Provider Internal Medicine
DX: I10 Essential (primary) hypertension (principal); M10.9 Gout, unspecified; E78.5 Hyperlipidemia, unspecified; E11.49 Type 2 diabetes mellitus with other diabetic neurological complication; Z79.4 Long term (current) use of insulin; Z79.84 Long term (current) use of oral hypoglycemic drugs
CPT/HCPCS: 80053; 80061; 83036; 84550; 85025

== ENCOUNTER 2024-06-08 08:22 | Outpatient (POV) | payer OTHER, SELFPAY ==
[2024-06-08 08:53] VITALS: BP 147/79; PULSE 82; RESP 16; O2SAT 97; BMI 34.4
--- NOTE | 2024-06-08 08:59 | A.OFFVIS_ITS ---
[facility] Disclaimer: The information contained in this section may have been updated after the patient was seen, as this information can be updated by other users. Medical History GERD (gastroesophageal reflux disease) Gout Diabetes Hypertension Family History Other No significant family history Social History Smoking Status: Former smoker second hand exposure: Yes alcohol intake: never substance use type: denies use current occupational status: employed Travel in the last 8 weeks: None household members: spouse housing: house caffeine: Yes PM Subjective & Objective Subjective Subjective:: Patient is a pleasant 64-year-old male who presents today for 6-month follow-up. Today he rates his pain a 0 out of 10. He states overall he is still done really well from having his left transforaminal epidural back in December 2022. He denies any other changes. His Zach has been reviewed and is appropriate. Review of Systems: General: No recent weight changes, no fever, no sleep disturbances Respiratory: No cough, no shortness of air, no recurring pulmonary infections Cardiovascular/peripheral vascular: No chest pain, no palpitations, no edema, no shortness of breath Gastrointestinal: No new onset incontinence, normal bowel movements reported Genitourinary: No new onset incontinence Musculoskeletal: Low back pain Psychiatric: [Normal mood/affect] Neurological: [Denies weakness in extremities], [denies balance issues] Pain at rest (0-10 scale): 0 Objective Objective:: Physical Exam: General: Alert and oriented x3, no acute distress, pleasant and cooperative Lungs: Respirations even and unlabored, symmetrical chest expansion Eyes: PERRL Musculoskeletal: Flexion and extension of lumbar [spine] somewhat guarded secondary to pain, [antalgic gait noted] Neurological: Speech clear, no gross sensory deficit Has patient had previous pain injection?: No Conservative treatment options previously tried: Home exercise plan Length of treatment: Longer than 12 weeks Meds Home Medications and Allergies Home Medications ?Medication ?Instructions ?Recorded ?Confirmed ?Type albuterol sulfate 90 mcg/actuation 2 puff inhalation Q4-6H PRN ASTHMA 08/12/17 05/10/24 History aerosol inhaler (ProAir HFA) ibuprofen 800 mg tablet 800 mg PO TID Pain 12/22/22 05/10/24 History diclofenac sodium 1 % topical gel 2 g topical QID PRN pain #100 grams 11/08/23 05/10/24 Rx fluticasone fur. 100 mcg-umeclid 1 inh .Route DAILY . #60 ea 11/08/23 05/10/24 Rx 62.5 mcg-vilant 25 mcg inhalat.powder (Trelegy Ellipta) fenofibrate micronized 134 mg See Rx Instructions .Route 01/03/24 05/10/24 Rx capsule .COMPLEX #90 caps gabapentin 300 mg capsule 300 mg PO TID Pain #270 caps 03/08/24 05/10/24 Rx allopurinol 300 mg tablet See Rx Instructions .Route 04/05/24 05/10/24 Rx .COMPLEX #135 tabs amlodipine 10 mg tablet See Rx Instructions .Route 04/05/24 05/10/24 Rx .COMPLEX #90 tabs ferrous sulfate 325 mg (65 mg See Rx Instructions .Route 04/05/24 05/10/24 Rx iron) tablet (FeroSul) .COMPLEX #90 tabs glimepiride 4 mg tablet See Rx Instructions .Route 04/05/24 05/10/24 Rx .COMPLEX #180 tabs hydrochlorothiazide 25 mg tablet See Rx Instructions .Route 04/05/24 05/10/24 Rx .COMPLEX #90 tabs tamsulosin 0.4 mg capsule See Rx Instructions .Route 04/05/24 05/10/24 Rx .COMPLEX #90 caps insulin glargine 100 unit/mL (3 See Rx Instructions .Route 04/28/24 05/10/24 Rx mL) subcutaneous pen (Lantus .COMPLEX #15 mL Solostar U-100 Insulin) lisinopril 40 mg tablet 80 mg (2 x 40 mg) PO DAILY BP #180 05/18/24 Rx tabs semaglutide 1 mg/dose (4 mg/3 mL) 1 mg (0.75 mL) SQ WEEKLY #3 mL 05/30/24 Rx subcutaneous pen injector omeprazole 40 mg capsule,delayed See Rx Instructions .Route 06/05/24 Rx release .COMPLEX #90 caps New Prescriptions to Start Prescriptions: Allergies Allergy/AdvReac Type Severity Reaction Status Date / Time No Known Allergies Allergy Verified 05/10/24 08:37 Assessment and Plan *Assessment and plan (1) Low back pain: Status: Acute Category: Medical Code(s): M54.50 - Low back pain, unspecified Plan Patient has continued to do well following his transforaminal epidural. We will have him follow-up in 1 year. Patient has been instructed to contact the clinic with any concerns before the next appointment. Dr. Meyers has reviewed this note and agrees with this plan of care. This note was dictated using voice recognition software and make contain errors or omissions. All injections are used with Lidocaine, Bupivacaine and Depo Medrol. Occasionally urine drug screen is needed to verify patient's compliance with our office pain contract. This is ordered based off specific treatments related to chronic pain with the potential to abuse certain medications.
== END 2024-06-08 23:59 | disposition home or self-care (01) ==
LOC: SC.PAIN 08:22
PROVIDERS: PCP Internal Medicine; Visit Provider Nurse Practitioner Family
DX: M54.50 Low back pain, unspecified (principal); Z87.891 Personal history of nicotine dependence; Z79.899 Other long term (current) drug therapy
CPT/HCPCS: 99212; G0463

== ENCOUNTER 2024-08-09 08:45 | Outpatient (CLI) | payer OTHER, SELFPAY ==
[2024-08-09 17:21] LABS: Basophils # 0.1 K/mm3 (0-0.2); Basophils % 1.4 % (0.1-2.0); Eosinophils # 0.3 K/mm3 (0.0-0.4); Eosinophils % 3.3 % (0.1-12.0); Hematocrit 45.9 % (42.0-52.0); Lymphocytes # 2.7 K/mm3 (0.7-4.5); Lymphocytes % 34.5 % (10-50); Mean Corpuscular HGB Conc 32.7 g/dL (31.8-35.4); Mean Corpuscular Hemoglobin 27.6 pg (27.0-31.2); Mean Corpuscular Volume 84.4 fl (80-94); Mean Platelet Volume 9.6 fl (7.4-10.4); Monocytes # 0.6 K/mm3 (0.1-1.0); Monocytes % 7.1 % (1.7-9.3); Neutrophils # 4.2 K/mm3 (1.8-7.8); Neutrophils % 53.6 % (37.0-80.0); Platelet Count 340 K/mm3 (142-424); Red Blood Count 5.44 M/mm3 (4.60-6.20); Red Cell Distribution Width 14.1 % (11.5-17.5); White Blood Count 7.9 K/mm3 (4.8-10.8)
[2024-08-09 17:43] LABS: Creatinine,Urine Random 121 mg/dL (Not Estab.)
[2024-08-09 17:46] LABS: Microalbumin/Creatinine Ratio 38.9
[2024-08-09 18:06] LABS: Alanine Aminotransferase 33 U/L (12-78); Albumin Level 4.7 g/dl (3.5-5.0); Alkaline Phosphatase 70 U/L (38-126); Anion Gap 15.1 mEq/L (5-15); Aspartate Amino Transferase 39 U/L (17-59); Bilirubin,Total 0.4 mg/dl (0.2-1.3); Blood Urea Nitrogen 27 mg/dl (9-20); Calcium 11.1 mg/dl (8.4-10.2); Carbon Dioxide 24 mmol/L (22.0-30.0); Chloride 105 mmol/L (98-107); Estimated Glomerular Filt Rate 56 ml/min (>60); GFR (African American) 67 ML/MIN (>60); Globulin 2.3 g/dL (1.3-3.2); Glucose 109 mg/dl (74-100); HDL Cholesterol 40 mg/dl (40-60); Potassium 4.1 mmoL/L (3.5-5.1); Sodium 140 mmol/L (136-145); Uric Acid 5.7 mg/dl (3.5-8.5)
[2024-08-09 18:17] LABS: Direct LDL Cholesterol 108.19 mg/dL (100-129)
[2024-08-09 19:01] LABS: Hemoglobin A1C 6.1 % (4.0-6.0)
[2024-08-09 19:29] LABS: Chol/HDL Ratio 4.8 (1-3.5); Cholesterol 190 mg/dl (140-200); Triglycerides 216 mg/dl (30-150); VLDL Cholesterol 43 mg/dL (0-40)
== END 2024-08-09 23:59 | disposition home or self-care (01) ==
LOC: LAB.DROPOF 08-10 12:55
PROVIDERS: PCP Internal Medicine; Visit Provider Internal Medicine
DX: Z12.5 Encounter for screening for malignant neoplasm of prostate (principal); E78.5 Hyperlipidemia, unspecified; M10.9 Gout, unspecified; I10 Essential (primary) hypertension; Z86.2 Personal history of diseases of the blood and blood-forming organs and certain disorders involving the immune mechanism; E11.49 Type 2 diabetes mellitus with other diabetic neurological complication; Z79.84 Long term (current) use of oral hypoglycemic drugs; Z79.85 Long-term (current) use of injectable non-insulin antidiabetic drugs; Z79.4 Long term (current) use of insulin; Z87.891 Personal history of nicotine dependence
CPT/HCPCS: 80053; 80061; 82043; 82570; 83036; 84550; 85025; G0103

== ENCOUNTER 2024-11-17 09:05 | Outpatient (CLI) | payer OTHER, SELFPAY ==
--- NOTE | 2024-11-17 09:07 | XR_ITS ---
FINAL REPORT CLINICAL HISTORY: Left knee pain and stiffness FINDINGS: LEFT KNEE Three views were obtained. There is no fracture or dislocation. The joint spaces appear normal. Small joint effusion is identified. No soft tissue abnormality is identified. IMPRESSION: Small joint effusion. Reviewed, Interpreted and Dictated by Samuel Braswell MD Transcribed by Tanja Wiggins Authenticated and [facility]
== END 2024-11-17 23:59 | disposition home or self-care (01) ==
LOC: RAD 09:06
PROVIDERS: PCP Internal Medicine; Visit Provider Internal Medicine
DX: M25.462 Effusion, left knee (principal); M25.562 Pain in left knee; M25.662 Stiffness of left knee, not elsewhere classified
CPT/HCPCS: 73562

== ENCOUNTER 2024-12-06 13:00 | Outpatient (CLI) | payer OTHER, SELFPAY ==
--- NOTE | 2024-12-06 13:03 | XR_ITS ---
FINAL REPORT CLINICAL HISTORY: right knee pain FINDINGS: RIGHT KNEE Three views were obtained. There is no fracture or dislocation. There is mild joint space narrowing of the medial compartment. There is minimal degenerative change of the patellofemoral joint. Moderate joint effusion is identified. No soft tissue abnormality is identified. IMPRESSION: Mild degenerative changes. Reviewed, Interpreted and Dictated by Samuel Braswell MD Transcribed by Tanja Wiggins Authenticated and [facility]
== END 2024-12-06 23:59 | disposition home or self-care (01) ==
LOC: RAD 13:01
PROVIDERS: PCP Internal Medicine; Visit Provider Physician Assistant
DX: M17.11 Unilateral primary osteoarthritis, right knee (principal)
CPT/HCPCS: 73562

== ENCOUNTER 2025-02-03 06:26 | Emergency (ER) | payer MEDICARE, OTHER, SELFPAY ==
[2025-02-03] VITALS (7 sets, daily range): BP systolic 138–185; BP diastolic 90–124; PULSE 68–85; RESP 17–18; TEMP 36.5–36.6; O2SAT 95–98; BMI 34.9
--- NOTE | 2025-02-03 06:41 | XR_ITS ---
PROCEDURE INFORMATION: Exam: XR Left Shoulder Exam date and time: 02/03/2025 6:38 AM Age: 65 years old Clinical indication: Pain; Shoulder; Left TECHNIQUE: Imaging protocol: Radiologic exam of the left shoulder. Views: 2 or more views. COMPARISON: No relevant prior studies available. FINDINGS: Bones/joints: Degenerative changes in the acromioclavicular joint and glenohumeral joint. Well corticated Old avulsion fracture within the acromioclavicular joint. There is no evidence of acute fracture.There is no evidence of malalignment or dislocation. Soft tissues: Normal. IMPRESSION: There is no evidence of acute fracture.There is no evidence of malalignment or dislocation.
[2025-02-03] MEDS: IBUPROFEN 600 MG TABLET PO (07:29)
[2025-02-03] MEDS: ACETAMINOPHEN 500MG TAB 1000 MG PO (07:29)
[2025-02-03] MEDS: LIDOCAINE 5% TRANSDERMAL PATCH 1 EACH TD (07:30)
[2025-02-03] MEDS: METHOCARBAMOL 500MG TABLET 1000 MG PO (07:30)
--- NOTE | 2025-02-03 07:43 | ED_ITS ---
Discharge Plan Disposition Patient Disposition: Home, Self-Care Prescriptions Prescriptions: New methocarbamol 750 mg tablet 750 mg PO Q8H PRN (Reason: muscle spasm) Qty: 30 0RF lidocaine 4 % adhesive patch,medicated 1 patch topical DAILY PRN (Reason: pain) Qty: 10 0RF No Action albuterol sulfate [ProAir HFA] 90 mcg/actuation HFA aerosol inhaler 2 puff INHALATION Q4-6H PRN (Reason: ASTHMA) diclofenac sodium 1 % gel 2 g topical QID PRN (Reason: pain) Qty: 100 4RF gabapentin 300 mg capsule 300 mg PO TID Qty: 270 0RF (DME) pen needle, diabetic [Unifine Pentips] 32 gauge x 1/4 needle See Rx Instructions .Route Qty: 100 5RF Rx Instructions: As directed Trelegy Ellipta 100-62.5-25 mcg blister with device See Rx Instructions .ROUTE .COMPLEX Qty: 60 5RF Dose Instruction: INHALE 1 PUFF ONCE DAILY OR DIRECTED Rx Instructions: INHALE 1 PUFF ONCE DAILY OR DIRECTED ferrous sulfate [FeroSul] 325 mg (65 mg iron) tablet See Rx Instructions .ROUTE .COMPLEX Qty: 90 1RF Dose Instruction: TAKE 1 TABLET BY MOUTH ONCE DAILY WITH FOOD Rx Instructions: TAKE 1 TABLET BY MOUTH ONCE DAILY WITH FOOD hydrochlorothiazide 25 mg tablet See Rx Instructions .ROUTE .COMPLEX Qty: 90 1RF Dose Instruction: TAKE 1 TABLET BY MOUTH ONCE DAILY Rx Instructions: TAKE 1 TABLET BY MOUTH ONCE DAILY semaglutide 1 mg/dose (4 mg/3 mL) pen injector 1 mg SQ WEEKLY Qty: 3 1RF semaglutide 0.25 mg or 0.5 mg(2 mg/1.5 mL) pen injector 0.5 mg SQ WEEKLY Qty: 1.5 3RF lisinopril 40 mg tablet 80 mg PO DAILY Qty: 180 1RF omeprazole 40 mg capsule,delayed release(DR/EC) See Rx Instructions .ROUTE .COMPLEX Qty: 90 1RF Dose Instruction: TAKE 1 CAPSULE BY MOUTH EVERY MORNING FOR GERD Rx Instructions: TAKE 1 CAPSULE BY MOUTH EVERY MORNING FOR GERD insulin glargine [Lantus Solostar U-100 Insulin] 100 unit/mL (3 mL) insulin pen See Rx Instructions .ROUTE .COMPLEX Qty: 15 5RF Dose Instruction: INJECT 35 UNITS UNDER THE SKIN EVERY DAY OR DIRECTED KEEP IN REFRIGERATOR Rx Instructions: INJECT 35 UNITS UNDER THE SKIN EVERY DAY OR DIRECTED KEEP IN REFRIGERATOR tamsulosin 0.4 mg capsule 0.4 mg PO DAILY Qty: 90 1RF amlodipine 10 mg tablet See Rx Instructions .ROUTE .COMPLEX Qty: 90 1RF Dose Instruction: TAKE 1 TABLET BY MOUTH ONCE DAILY Rx Instructions: TAKE 1 TABLET BY MOUTH ONCE DAILY fenofibrate micronized 134 mg capsule See Rx Instructions .ROUTE .COMPLEX Qty: 90 1RF Dose Instruction: TAKE 1 CAPSULE BY MOUTH ONCE DAILY Rx Instructions: TAKE 1 CAPSULE BY MOUTH ONCE DAILY allopurinol 300 mg tablet See Rx Instructions .ROUTE .COMPLEX Qty: 135 1RF Dose Instruction: TAKE 1 TABLET BY MOUTH IN THE MORNING AND 1/2 TABLET IN THE EVENING Rx Instructions: TAKE 1 TABLET BY MOUTH IN THE MORNING AND 1/2 TABLET IN THE EVENING glimepiride 4 mg tablet See Rx Instructions .ROUTE .COMPLEX Qty: 180 1RF Dose Instruction: TAKE 1 TABLET BY MOUTH TWICE A DAY Rx Instructions: TAKE 1 TABLET BY MOUTH TWICE A DAY ibuprofen 800 mg tablet 800 mg PO TID Referrals Follow up/Referrals: Ankit Jefferson MD [Primary Care Provider, Medical] - See instructions Timothy Mark DO [Staff Physician, Orthopedics] - See instructions Activity Restrictions/Add. Instructions Additional Instructions/Restrictions: The pain you are experiencing is likely coming from a pinched nerve in your neck or a pulled muscle. I am prescribing a muscle relaxer, Robaxin, as well as lidocaine patches to help with your symptoms. In addition to this, you can take 600mg of ibuprofen and 1000 mg of Tylenol every 6 hours as needed to help with symptoms. If you like, you can use the sling for comfort. You are being referred to Dr. Mark with orthopedic surgery team. I encourage you to call their office on Wednesday. You may need an MRI if symptoms persist. If you develop any new or worsening symptoms, or if you become concerned for your health for any reason, return to the emergency department for evaluation Clinical Impressions Clinical Impression: Cervical radiculopathy Print Language Print Language: Danish Discharge ED Provider: Warren Thornton Adult [facility] General Chief complaint: Extremity Injury, Upper Stated complaint: L shoulder pain Time Seen by Provider: 02/03/25 07:07 Mode of Arrival: Ambulatory Source of Information: Patient Description of Symptoms (Recalled from ER Triage Doc. by RN): Pt presents with left shoulder pain that radiates into right elbow. Pt states he was pulling a sub floor up last week and thinks he pulled something but the pain has become so severe he has placed it in a sling. Denies any previous injury to extremity. History of Present Illness HPI narrative: Jose Real is a 65y male with a history of gout, diabetes, HTN who presents to the emergency department for complaints of left neck and shoulder pain that radiates down his left arm with movement. 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 He states that if he holds his arm down by his side, the pain becomes severe. He states that the pain radiates down to his left elbow but originates in the left posterior shoulder. He states that he has been keeping his arm in a sling ever since because that helps with the pain. He denies any known trauma to the area. He does report some numbness and tingling in all of his fingers. He denies any neck pain, headache. He denies any weakness. He denies any chest pain or shortness of breath. Related Data Home Medications ?Medication ?Instructions ?Recorded ?Confirmed albuterol sulfate 90 mcg/actuation 2 puff inhalation Q 4-6H PRN ASTHMA 08/12/17 12/06/24 aerosol inhaler (ProAir HFA) ibuprofen 800 mg tablet 800 mg PO TID Pain 12/22/22 12/06/24 Previous Rx's ?Medication ?Instructions ?Recorded diclofenac sodium 1 % topical gel 2 g topical QID PRN pain #100 grams 11/08/23 pen needle, diabetic 32 gauge x #100 ea 06/09/24/ (Unifine Pentips) fluticasone fur. 100 mcg-umeclid See Rx Instructions . Route 07/21/24 62.5 mcg-vilant 25 mcg .COMPLEX #60 ea inhalat.powder (Trelegy Ellipta) gabapentin 300 mg capsule 300 mg PO TID Pain #270 caps 08/09/24 ferrous sulfate 325 mg (65 mg See Rx Instructions .Rou te 10/02/24 iron) tablet (FeroSul) .COMPLEX #90 tabs hydrochlorothiazide 25 mg tablet See Rx Instructions . Route 10/02/24 .COMPLEX #90 tabs semaglutide 1 mg/dose (4 mg/3 mL) 1 mg (0.75 mL) SQ WE EKLY #3 mL 10/20/24 subcutaneous pen injector semaglutide 0.25 mg or 0.5 mg (2 0.5 mg (0.374 mL) SQ WEEKLY #1.5 mL 11/16/24 mg/1.5 mL) subcutaneous pen injector lisinopril 40 mg tablet 80 mg (2 x 40 mg) PO DAILY B P #180 11/21/24 tabs omeprazole 40 mg capsule,delayed See Rx Instructions . Route 12/05/24 release .COMPLEX #90 caps insulin glargine 100 unit/mL (3 See Rx Instructions .R oute 01/12/25 mL) subcutaneous pen (Lantus .COMPLEX #15 mL Solostar U-100 Insulin) tamsulosin 0.4 mg capsule 0.4 mg PO DAILY #90 caps allopurinol 300 mg tablet See Rx Instructions .Route 0 01/19/25 .COMPLEX #135 tabs amlodipine 10 mg tablet See Rx Instructions .Route 0 01/19/25 .COMPLEX #90 tabs fenofibrate micronized 134 mg See Rx Instructions .Rou te 01/19/25 capsule .COMPLEX #90 caps glimepiride 4 mg tablet See Rx Instructions .Route 0 01/29/25 .COMPLEX #180 tabs lidocaine 4 % topical patch 1 patch topical DAILY PRN pain #10 02/03/25 ea methocarbamol 750 mg tablet 750 mg PO Q8H PRN muscle s pasm #30 02/03/25 tabs Allergies Allergy/AdvReac Type Severity Reaction Status Date / Time No Known Allergies Allergy Verified 12/06/24 12:50 [facility] Disclaimer: The information contained in this section may have been updated after the patient was seen, as this information can be updated by other users. Medical History GERD (gastroesophageal reflux disease) Gout Diabetes Hypertension Family History Other No significant family history Social History Smoking Status: Never smoker second hand exposure: Yes alcohol intake: never substance use type: denies use current occupational status: other Travel in the last 8 weeks?: None household members: spouse housing: house caffeine: Yes Have you lived/traveled outside [place] in past 30 days?: No Contact w/someone who lives/traveled outside [place] past 30 days?: No Exposure to someone with infectious disease in past 14 days?: No Do you have a fever (greater than 100.4 F or 38 C)?: No Have you tested positive for COVID-19?: No Exposed to someone with COVID-19 in past 14 days?: No Do you have a sore throat?: No Do you have a cough?: No Do you have any weakness?: No Do you have any diarrhea?: No Are you experiencing any unusual bleeding?: No Do you have any muscle aches/pain?: No Do you have any abdominal pain?: No Are you experiencing loss of taste or smell?: No Other Medical History Have you received the Flu Vaccine for this season: Yes Have you received the Pneumonia Vaccine: No ROS Obtained: Yes Systems reviewed as appropriate & no additional complaints except as documented Physical Exam General General appearance: alert and in no apparent distress Head Head exam: atraumatic Eye Eye exam: Present normal appearance ENT ENT exam: Present normal external ear exam Neck Neck exam: Present full ROM Chest Chest inspection: Present symmetric chest wall rise Respiratory Respiratory exam: Present normal lung sounds bilaterally; Absent respiratory distress Cardiovascular Cardiovascular exam: Present regular rate and normal rhythm Abdominal Exam Abdominal exam: Present soft; Absent tenderness or guarding exam: Present deferred Extremities Exam Extremities exam: Present normal inspection Back Exam Back exam: Present normal inspection Neurological Exam Neurological exam: Present alert and oriented X3; Absent motor sensory deficit Expanded Neurological Exam Comment: 5 out of 5 pulp drier strength, 5 out of 5 strength at the wrist with flexion and extension against resistance, 5 out of 5 strength with flexion and extension at the elbow. 5 out of 5 strength with abduction at the left shoulder. No pain with range of motion of the shoulder to 180 degrees. Negative empty can test. No tenderness over the joint itself. No midline cervical spine tenderness. Sensation grossly intact. Radial pulses 2+ to bilateral upper extremities. Psychiatric Psychiatric exam: Present normal affect Skin Skin exam: Present warm and dry Medical Decision Making Medical Records Screening: Per USPSTF and CDC recommendations, given the prevalence of disease in our region, it is our hospital?s policy to screen for HIV and viral Hepatitis for all patients aged 18 and over and those with ongoing risk factors. Zach Inquiry Pt receiving controlled substance: No Vital Signs: 02/03/25 06:35 02/03/25 06:53 02/03/25 07:00 Temperature 97.7 F Temperature Source Oral Pulse Rate 74 83 Pulse Rate [Left] 84 Respiratory Rate 18 Blood Pressure 171/111 H 185/124 H Blood Pressure [Left Arm] 168/91 H Blood Pressure Mean [Left Arm] 116 Blood Pressure Source [Left Arm] Automatic Cuff Blood Pressure Position [Left Arm] Sitting 02 Sat by Pulse Oximetry 98 97 97 Oxygen Delivery Method Room Air 02/03/25 07:48 02/03/25 08:00 02/03/25 08:30 Temperature Temperature Source Pulse Rate 79 68 82 Pulse Rate [Left] Respiratory Rate Blood Pressure 138/96 H 147/90 H 144/106 H Blood Pressure [Left Arm] Blood Pressure Mean [Left Arm] Blood Pressure Source [Left Arm] Blood Pressure Position [Left Arm] 02 Sat by Pulse Oximetry 96 95 97 Oxygen Delivery Method Orders (Tests/Meds): ED MEDICATIONS Discontinued Medications Generic Name Dose Route Start Last Admin Trade Name Freq PRN Reason Stop Dose Admin Acetaminophen 1,000 mg 02/03/25 07:18 02/03/25 07:29 Acetaminophen 500mg Tab PO 02/03/25 07:19 1,000 mg ONCE ONE Administration Ibuprofen 600 mg 02/03/25 07:18 02/03/25 07:29 Ibuprofen 600 Mg Tablet PO 02/03/25 07:19 600 mg ONCE ONE Administration Lidocaine 1 each 02/03/25 07:18 02/03/25 07:30 Lidocaine 5% Transdermal Patch TD 02/03/25 07:19 1 each ONCE ONE Administration Methocarbamol 1,000 mg 02/03/25 07:18 02/03/25 07:30 Methocarbamol 500mg Tablet PO 02/03/25 07:19 1,000 mg ONCE ONE Administration ORDERS Category Date Time Status XR shoulder LT min 2V Stat Exams 02/03/25 06:41 Completed EKG Request [ECG Request] Stat Y 02/03/25 07:55 Ordered ECG Data Tracing #1: I reviewed this ECG and interpreted as documented below: Normal sinus rhythm. No ST elevation or depression. With downgoing QRS complexes. Downgoing T waves in lead III also with downgoing QRS complexes. Downgoing T waves in V5 and V6, No discordance. No ST elevation or depression. Medical Decision Narrative: Jose Real is a 65y male with a history of gout, diabetes, HTN who presents to the emergency department for complaints of left neck and shoulder pain that radiates down his left arm with movement. 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 He states that if he holds his arm down by his side, the pain becomes severe. He states that the pain radiates down to his left elbow but originates in the left posterior shoulder. He states that he has been keeping his arm in a sling ever since because that helps with the pain. He denies any known trauma to the area. He does report some numbness and tingling in all of his fingers. He denies any neck pain, headache. He denies any weakness. He denies any chest pain or shortness of breath. Patient does note that pain caused him to vomit this morning. Arrival, patient was noted to be hypertensive at 180/124, however cuff size was wrong and repeat blood pressure with appropriate sized cuff was 138/96. Afebrile. Breathing comfortably on room air with appropriate oxygen saturation. Heart rate 83 bpm. Physical exam, stated above, revealed an overall well-appearing male in no distress. Left upper extremity exam is grossly unremarkable. No tenderness over the shoulder. Full range of motion at the shoulder to 180 degrees without significant pain. Full strength with abduction. Full strength with flexion extension at the elbow. Full strength with flexion extension at the wrist. Full strength with pulp drier strength bilaterally. No sensory deficits. Pulses are intact. No midline cervical spine tenderness or step-offs. Negative empty can test. Differential diagnosis includes, but is not limited to: Cervical radiculopathy, fracture, muscle strain, AC joint separation, among others. Low concern for cardiac etiology given location of patient's pain and lack of chest pain or shortness of breath but will obtain EKG to rule out STEMI. Low concern for cervical spine injury/fracture given he has not had any falls or trauma and has no pain in his neck and no tenderness on exam. Is felt that no cervical spine CT/x-ray imaging would be of benefit given low concern for fracture. Will obtain left shoulder x-rays. Will administer lidocaine patch, Robaxin, Tylenol and ibuprofen. Patient states that he is not currently nauseated. EKG without evidence of ischemia. Left shoulder x-ray interpreted by me personally. No acute fracture or dislocation. No AC joint separation. See radiology report for interpretation. On reassessment, patient reports that he has had quite a bit of relief with the medications provided to him today. Is felt that his symptomatology is most consistent with cervical radiculopathy and would benefit from orthopedic follow- up. Given he had relief of symptoms with these medications, will prescribe Robaxin as well as lidocaine patches to go home with. I did encourage him to take 1000 mg and 600mg of ibuprofen every 6 hours as needed to help with symptoms. Will refer him to Dr. Mark with orthopedic surgery for further evaluation and management. Return precautions were given. All questions were answered. He demonstrated understanding and was in agreement this plan. He was then discharged from the emergency department in stable condition. Critical Care Critical Care Time Critical Care Time: No
--- NOTE | 2025-02-03 08:02 | ECG_ITS ---
APPROVED REPORT Exam: Resting ECG HR:70 bpm ECG Measurements Heart Rate 70 AXES VT 156 P 48 QRSd 113 QRS -84 QT 406 T -9 QTc 427 Conclusion SINUS RHYTHM LEFT ANTERIOR FASCICULAR BLOCK [QRS AXIS <= -45, QR IN I, RS IN II] ANTERIOR MYOCARDIAL INFARCTION , PROBABLY RECENT [40+ ms Q WAVE AND/OR ST/T ABNORMALITY IN V3/V4] ACUTE VT UNCONFIRMED REPORT Normal sinus rhythm. No ST elevation or depression Electronically signed by : GUILLERMO YOON, 02/06/2025 07:00:40
== END 2025-02-03 09:30 | disposition home or self-care (01) ==
PROVIDERS: Emergency Provider Student in an Organized Health Care Education/Training Program; PCP Internal Medicine
DX: M54.12 Radiculopathy, cervical region (principal); K21.9 Gastro-esophageal reflux disease without esophagitis; I10 Essential (primary) hypertension
CPT/HCPCS: 73030; 93005; 99283; 99285

== ENCOUNTER 2025-02-08 12:49 | Outpatient (CLI) | payer MEDICARE, OTHER, SELFPAY ==
[2025-02-08 09:45] LABS: Hematocrit 48.5 % (42.0-52.0); Hemoglobin 16.4 g/dL (14.1-18.0); Immature Granulocytes % 0.5 %; Mean Corpuscular HGB Conc 33.8 g/dL (31.8-35.4); Mean Corpuscular Hemoglobin 27.7 pg (27.0-31.2); Mean Corpuscular Volume 82.1 fl (80-94); Nucleated Red Blood Cells % 0 %; Platelet Count 419 K/mm3 (142-424); Red Blood Count 5.91 M/mm3 (4.60-6.20); Red Cell Distribution Width-SD 40.1 fL; White Blood Count 13.3 K/mm3 (4.8-10.8)
[2025-02-08 10:12] LABS: Albumin Level 4.9 g/dl (3.5-5.0); Chloride 98 mmol/L (98-107); Sodium 137 mmol/L (136-145)
[2025-02-08 10:13] LABS: Potassium 4.2 mmoL/L (3.5-5.1)
[2025-02-08 10:15] LABS: Alanine Aminotransferase 34 U/L (12-78); Albumin/Globulin Ratio 1.8 (1.1-1.8); Alkaline Phosphatase 91 U/L (38-126); Anion Gap 19.2 mEq/L (5-15); Aspartate Amino Transferase 46 U/L (17-59); Bilirubin,Total 0.6 mg/dl (0.2-1.3); Blood Urea Nitrogen 50 mg/dl (9-20); Carbon Dioxide 24 mmol/L (22.0-30.0); Creatinine,Serum 1.50 mg/dl (0.66-1.25); Estimated Glomerular Filt Rate 47 ml/min (>60); GFR (African American) 57 ML/MIN (>60); Globulin 2.8 g/dL (1.3-3.2); Total Protein,Serum 7.7 g/dl (6.3-8.2); Uric Acid 6.4 mg/dl (3.5-8.5)
[2025-02-08 10:16] LABS: Calcium 10.7 mg/dl (8.4-10.2); Cholesterol 203 mg/dl (140-200); Glucose 205 mg/dl (74-100); HDL Cholesterol 52 mg/dl (40-60); Triglycerides 147 mg/dl (30-150)
[2025-02-08 10:52] LABS: Hemoglobin A1C 5.8 % (4.0-6.0)
== END 2025-02-08 23:59 | disposition home or self-care (01) ==
LOC: LAB.DROPOF 12:50
PROVIDERS: PCP Internal Medicine; Visit Provider Internal Medicine
DX: E78.5 Hyperlipidemia, unspecified (principal); I10 Essential (primary) hypertension; M10.9 Gout, unspecified; E11.49 Type 2 diabetes mellitus with other diabetic neurological complication
CPT/HCPCS: 80053; 80061; 83036; 84550; 85025

== ENCOUNTER 2025-02-12 07:22 | Outpatient (CLI) | payer MEDICARE, OTHER, SELFPAY | END 2025-02-12 23:59 | disposition home or self-care (01) | LOC: RAD 07:23 | PROVIDERS: PCP Internal Medicine; Visit Provider Physician Assistant | DX: M25.522 Pain in left elbow (principal); S46.209A Unspecified injury of muscle, fascia and tendon of other parts of biceps, unspecified arm, initial encounter; F40.240 Claustrophobia ==

== ENCOUNTER 2025-03-19 12:54 | Outpatient (CLI) | payer MEDICARE, OTHER, SELFPAY ==
--- NOTE | 2025-03-19 12:57 | XR_ITS ---
FINAL REPORT CLINICAL HISTORY: Abdominal pain, diarrhea, gas COMPARISON: None FINDINGS: Chest: The heart and mediastinal within normal limits. Scarring is noted at the lung bases. The lungs are otherwise clear. There is no pneumothorax. Osseous structures are unremarkable. Abdomen: AP and upright views of the abdomen were obtained. Gas and stool is seen throughout the colon. No abnormally dilated loops of small bowel are noted. There is no free air. No abnormal calcifications are identified. IMPRESSION: No acute cardiopulmonary process. Gas and stool throughout the colon. Reviewed, Interpreted and Dictated by Danis Jean MD Transcribed by Eleonora Collazo Authenticated and [facility]
[2025-03-19 13:49] LABS: Hematocrit 41.1 % (42.0-52.0); Hemoglobin 13.6 g/dL (14.1-18.0); Immature Granulocytes % 0.3 %; Mean Corpuscular HGB Conc 33.1 g/dL (31.8-35.4); Mean Corpuscular Hemoglobin 27.1 pg (27.0-31.2); Mean Corpuscular Volume 81.9 fl (80-94); Nucleated Red Blood Cells % 0 %; Platelet Count 396 K/mm3 (142-424); Red Blood Count 5.02 M/mm3 (4.60-6.20); Red Cell Distribution Width-SD 38.7 fL; White Blood Count 9.8 K/mm3 (4.8-10.8)
[2025-03-19 14:10] LABS: Albumin Level 3.1 g/dl (3.5-5.0); Chloride 100 mmol/L (98-107); Sodium 137 mmol/L (136-145)
[2025-03-19 14:13] LABS: Alanine Aminotransferase 51 U/L (12-78); Albumin/Globulin Ratio 0.9 (1.1-1.8); Alkaline Phosphatase 90 U/L (38-126); Anion Gap 11.6 mEq/L (5-15); Aspartate Amino Transferase 45 U/L (17-59); Bilirubin,Total 0.8 mg/dl (0.2-1.3); Blood Urea Nitrogen 10 mg/dl (9-20); Calcium 8.4 mg/dl (8.4-10.2); Carbon Dioxide 28 mmol/L (22.0-30.0); Creatinine,Serum 0.90 mg/dl (0.66-1.25); Estimated Glomerular Filt Rate 85 ml/min (>60); GFR (African American) 102 ML/MIN (>60); Globulin 3.6 g/dL (1.3-3.2); Glucose 113 mg/dl (74-100); Total Protein,Serum 6.7 g/dl (6.3-8.2)
[2025-03-19 15:29] LABS: Potassium 2.6 mmoL/L (3.5-5.1)
[2025-03-19 22:29] LABS: C. difficile PCR (HMH) Negative (Neagtive)
== END 2025-03-19 23:59 | disposition home or self-care (01) ==
LOC: RAD 12:56
PROVIDERS: PCP Internal Medicine; Visit Provider Internal Medicine
DX: R10.9 Unspecified abdominal pain (principal); R19.7 Diarrhea, unspecified
CPT/HCPCS: 74021; 80053; 85025; 87045; 87177; 87205; 87493